=== PATIENT | female | born 1955 | race African-American/Black ===

== ENCOUNTER → 2017-02-14 | Outpatient (CLI) | payer MEDICARE, OTHER ==
[2016-03-04 12:14] VITALS: BP 110/86
[~2017-02-14] MED LIST: ALBU8.5H8 IH; CEFP200T PO; CELE100C PO; CYCL-331 PO; ESTR1PAT42 TD; ESTR1PAT51 TD; FEXO180T PO; FLUT16SP2 NS; FLUT1DIS5 IH; HYDR-971 PO; Hydrocodone/Chlorphen Polis PO; IBUP100T3 PO; IPRA4AER IH; LAMI1TAB2 PO; LEVO750T31 PO; MONT10TA6 PO; OXYC-323 PO; OXYC-327; OXYC1TAB8; POLY17PO5 PO; PRED20TA PO; PSEU120T46 PO
--- NOTE | 2017-02-14 15:21 | RAD ---
Indication shortness of air. COPD. PA and lateral views of the chest were obtained. Comparison is made to the most recent examination available 12/06/2014. Note is made of a CT examination of the chest 03/09/2016. No acute parenchymal infiltrate is seen. The heart and pulmonary vessels are within normal limits. There are chronic background changes compatible with emphysema and/or fibrosis. No acute parenchymal infiltrate is seen. There is a possible nodule in the right upper lobe overlying the anterior aspect of the second rib. The finding is not certain but follow-up imaging is advised. IMPRESSION: No acute finding. Chronic changes. Possible nodule in the right upper lobe. Follow-up imaging advised
== END | disposition home or self-care (01) ==
LOC: DXRAD 12:53
PROVIDERS: ATTEND Internal Medicine Pulmonary Disease
DX: J44.9 Chronic obstructive pulmonary disease, unspecified (principal); R06.02 Shortness of breath
CPT/HCPCS: 71020

== ENCOUNTER → 2017-02-22 | Outpatient (CLI) | payer MEDICARE, OTHER ==
[2016-03-04 12:14] VITALS: BP 110/86
--- NOTE | 2017-02-22 09:51 | RAD ---
CT of the chest without contrast, 02/22/2017: History: Possible lung nodule on chest radiograph Noncontrast scans were obtained as requested. Comparison is made to a study of 03/09/2016. Emphysematous changes are present in the lungs. There are moderate scattered linear opacities in both lungs most compatible with scars. There is mild pleural scarring over the pulmonary apices. No pulmonary mass or dense consolidation is seen. The small opacity seen in the right upper chest on the recent chest radiograph appears to have been due to a summation of shadows. No pulmonary nodule is seen in this region. There is mild calcific plaquing of the thoracic aorta without evidence of aneurysm. Minimal coronary calcifications are present. Several small mediastinal lymph nodes are seen without evidence of pathologic enlargement. The thyroid gland is enlarged with a vague area of decreased density seen in the left lobe near its junction with the isthmus. This measures approximately 2.8 cm and appears be unchanged since 12/05/2014. There is no evidence of pleural fluid. IMPRESSION: 1. Emphysema with moderate bilateral parenchymal scarring. 2. Unchanged left thyroid nodule. 3. No acute abnormality is detected. PQRS Compliance Statement: One or more of the following individualized dose reduction techniques were utilized for this examination: 1. Automated exposure control 2. Adjustment of the mA and/or kV according to patient size 3. Use of iterative reconstruction technique
== END | disposition home or self-care (01) ==
LOC: CT 08:39
PROVIDERS: ATTEND Internal Medicine Pulmonary Disease
DX: J43.9 Emphysema, unspecified (principal); J98.4 Other disorders of lung; E04.9 Nontoxic goiter, unspecified; I70.0 Atherosclerosis of aorta; I25.10 Atherosclerotic heart disease of native coronary artery without angina pectoris
CPT/HCPCS: 71250

== ENCOUNTER 2017-03-02 08:35 | Emergency (ER) | payer MEDICARE, OTHER ==
[2017-03-02 09:40] LABS: INFLUENZA A PATIENT NEGATIVE (NEGATIVE); INFLUENZA B PATIENT NEGATIVE (NEGATIVE)
[2017-03-02 09:53] VITALS: BP 138/73
[2017-03-02] MEDS ORDERED: AZIT250T PO (10:06)
[2017-03-02] MEDS ORDERED: IBUP800T19 PO (10:06)
--- NOTE | 2017-03-02 10:06 | PHYS DOC ---
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 Patient has a history of asthma, COPD, and sarcoidosis. She does not take any prednisone or immunosuppressive medications. She was feeling well until yesterday evening and began to feel feverish. She's had a scratchy throat that's a little bit sore. She has had a little bit of a cough. She doesn' t think she is any more short of air than usual. She has a mild headache. She does not have muscle aches or pains. As far as recent medical conditions, she did have 2 teeth pulled about 6 weeks ago but believe she is all healed up from that. She hasn't had any other recent new symptoms, new medications, etc. She did have a CT scan done last week to follow-up something that was seen on a chest x-ray. She doesn't yet know the results of that CT scan. Parts Room Clerk Dr. Rodriguez Review of Systems Review of Systems Constitutional: As in history of present illness HENT: Denies nasal congestion or sore throat but her throat is a bit scratchy Respiratory: As in history of present illness Cardiovascular: Denies chest pain GI: Denies abdominal pain, nausea, vomiting, bloody stools or diarrhea [] : Denies dysuria or hematuria [] Musculoskeletal: Denies back pain or joint pain [] Integument: Denies rash or skin lesions [] Neurologic: Mild headache, no other neurologic complaints Allergies Allergies Allergies Coded Allergies Type Severity Reaction Last Updated Verified Penicillins Allergy Intermediate rash (HAD A TWO YEAR) 04/14/14 Yes Sulfa (Sulfonamide Antibiotics) Allergy Intermediate HIVES 04/14/14 Yes simvastatin Allergy Intermediate 12/06/14 Yes erythromycin base Adverse Reaction Intermediate 04/14/14 Yes Physical Exam Physical Exam Constitutional: Well developed, well nourished, no acute distress, non-toxic appearance. Temp recheck by me 101.2 orally. Alert, mentating normally, joking, appears healthy. HENT: Normocephalic, atraumatic, bilateral external ears normal, oropharynx moist, no oral exudates, tonsils not enlarged or red, nose normal. [] Eyes: conjunctiva normal, no discharge. [] Neck: Normal range of motion, no stridor. [] Cardiovascular:Heart rate regular rhythm, no murmur [] Lungs & Thorax: Bilateral breath sounds clear to auscultation with no wheezes or rales Abdomen: Bowel sounds normal, soft, no tenderness, no masses, no pulsatile masses. [] Skin: Warm, dry, no erythema, no rash. [] Extremities: No tenderness, no cyanosis, no clubbing, ROM intact, no edema. [] Neurologic: Alert and oriented X 3, normal motor function, normal sensory function, no focal deficits noted. [] Current Patient Data Lab Results Laboratory Tests Test 03/02/17 09:03 03/02/17 09:12 Group A Streptococcus Rapid Negative (NEGATIVE) Influenza Type A (Rapid) Negative (NEGATIVE) Influenza Type B (Rapid) Negative (NEGATIVE) EKG EKG [] Radiology/Procedures Radiology/Procedures [] Course & Med Decision Making Course & Med Decision Making Pertinent Labs and Imaging studies reviewed. (See chart for details) Rapid strep negative Influenza swab negative 61-year-old female who does have a history of COPD/asthma and sarcoidosis but is not on any immunosuppressant therapy comes in with fever for less than 24 hours. I recommended that we check her for influenza and she stated "I don't have the flu", laughing and stating that she does not have muscle aches or bodyaches. I did convince her to be checked for influenza which was negative. Patient did have a chest CT on 02/22 to follow up a finding on a chest x-ray, that chest CT was negative for acute findings and I did print off her report for the patient. Discussed with the patient and her . She most likely has a viral syndrome with fever. No localizing signs or symptoms have been found. However, she does have a history of COPD and also a history of sarcoidosis. She appears healthy and stable for discharge. I offered her treatment with an antibiotic and she would like to have an antibiotic, I prescribed a Z-Jerry for her. Tylenol or ibuprofen for fever. See instructions for plan. [] Dragon Disclaimer Dragon Disclaimer This chart was dictated in whole or in part using Voice Recognition software in a busy, high-work load, and often noisy Emergency Department environment. It may contain unintended and wholly unrecognized errors or omissions. Departure Departure: Impression: Primary Impression: Febrile illness, acute Additional Impression: COPD (chronic obstructive pulmonary disease) Disposition: 01 HOME, SELF-CARE Condition: STABLE Referrals: PCP,UNKNOWN (PCP) Patient Instructions: Fever, Adult Additional Instructions: As we discussed, strep and influenza tests were negative. You likely have a virus, which may last a day or may last several days. There is no specific treatment, it just has to run its course. Take ibuprofen for fever and drink plenty of fluids. Stay inside and rest until better. Because you have COPD and a history of sarcoidosis, we will treat with a Z-Jerry in case there is a bacterial infection that we have not identified. Scripts Azithromycin (ZITHROMAX) 250 Mg Tablet 1 PKG PO UD, #6 TAB Prov: KIKO MOYA MD 03/02/17 Ibuprofen (IBUPROFEN) 800 Mg Tablet 1 TAB PO TID for as needed for fever, #30 TAB Prov: KIOK MOYA MD 03/02/17 Problem Qualifiers KIKO MOYA MD Mar 02, 2017 10:06
[2017-03-02] MEDS ORDERED: IBUPROFEN 800 MG TABLET. PO ONE (10:14)
[2017-03-02] MEDS ORDERED: IBUPROFEN 600 MG TABLET. PO ONE (10:15)
[2017-03-02] MEDS ORDERED: IBUPROFEN 400 MG TABLET. PO ONE (10:30)
== END 2017-03-02 10:15 | disposition home or self-care (01) ==
LOC: ER 08:35
DX: J44.9 Chronic obstructive pulmonary disease, unspecified (principal); Z88.0 Allergy status to penicillin; Z88.2 Allergy status to sulfonamides; Z88.1 Allergy status to other antibiotic agents; Z88.8 Allergy status to other drugs, medicaments and biological substances
CPT/HCPCS: 87070; 87804; 87880; 99284

== ENCOUNTER 2017-06-06 17:55 | Emergency (ER) | payer MEDICARE, OTHER ==
[~2017-06-06 17:55] MED LIST changes: +AZIT250T PO; +IBUP800T19 PO
[2017-06-07] MEDS ORDERED: HYDR-971 PO (08:03)
== END 2017-06-06 18:00 | disposition home or self-care (01) ==
LOC: ER 17:55
DX: M25.569 Pain in unspecified knee (principal); Z53.21 Procedure and treatment not carried out due to patient leaving prior to being seen by health care provider

== ENCOUNTER 2017-06-07 07:32 | Emergency (ER) | payer MEDICARE, OTHER ==
[~2017-06-07] VITALS: Ht 157.5 cm; Wt 79.4 kg
[2017-06-07 07:57] VITALS: BP 116/76
[2017-06-07] MEDS ORDERED: HYDR-971 PO (08:03)
--- NOTE | 2017-06-07 08:03 | PHYS DOC ---
Past History Past Medical History: Asthma, COPD, Other Additional Past Medical Histor: sarcoidosis of lung Past Surgical History: Cholecystectomy Smoking: Non-smoker Alcohol Use: Occasionally Drug Use: None Adult General Chief Complaint Chief Complaint: KNEE INJURY HPI HPI Patient is a very pleasant 61-year-old female presenting to the emergency department for evaluation of left knee pain that has been going on for approximately 2 months. Denies any known definitive injury and she went to go see her primary care provider and had an x-ray that was negative and then went to physical therapy. Patient says that the pain starts the top of her knee And it goes medially and can happen when moving or rest and she feels a sharp pain internally. She has no significant swelling fevers chills or other systemic symptoms. She is taking Celebrex which helped the pain somewhat but sometimes she has severe pain at night that lasted for several hours and then goes away on its own. She is currently going through physical therapy. Review of Systems Review of Systems Constitutional: Denies fever or chills [] Musculoskeletal: Denies back pain. + L knee joint pain [] Integument: Denies rash or skin lesions [] Neurologic: Denies headache, focal weakness or sensory changes [] Allergies Allergies Allergies Coded Allergies Type Severity Reaction Last Updated Verified Penicillins Allergy Intermediate rash (HAD A TWO YEAR) 04/14/14 Yes Sulfa (Sulfonamide Antibiotics) Allergy Intermediate HIVES 04/14/14 Yes simvastatin Allergy Intermediate 12/06/14 Yes erythromycin base Adverse Reaction Intermediate 04/14/14 Yes Physical Exam Physical Exam Constitutional: Well developed, well nourished, no acute distress, non-toxic appearance. [] Extremities: Left knee with no significant erythema or effusion. She had no pain with anterior-posterior drawer test but she did have pain with valgus maneuver that reproduced her sharp pain internally. Neurologic: Alert and oriented X 3, normal motor function, normal sensory function, no focal deficits noted. [] EKG EKG [] Radiology/Procedures Radiology/Procedures [] Course & Med Decision Making Course & Med Decision Making Given she has been having knee pain for several months she likely would benefit from MRI and orthopedic consult. She was thinking that a CT scan would be helpful however told her this would not be helpful in this clinical circumstance. I told her to prescribe her [place] for when she gets severe pain but otherwise would need to try and get the MRI. Her PCP and then follow with orthopedics. Patient aware and agreeable with plan and verbalized understanding of the above instructions. Dragon Disclaimer Dragon Disclaimer This electronic medical record was generated, in whole or in part, using a voice recognition dictation system. Departure Departure: Impression: Primary Impression: Left knee pain Disposition: HOME, SELF-CARE Condition: STABLE Referrals: NON,STAFF (PCP) Patient Instructions: Knee - Cartilage (Meniscus) Injury Scripts Hydrocodone Bit/Acetaminophen (NORCO 5-325 TABLET) 1 Each Tablet 1 TAB PO PRN Q6HRS Y for PAIN, #20 TAB 0 Refills Prov: YUSEF ARCOS DO 06/07/17 Problem Qualifiers Primary Impression: Left knee pain Chronicity: chronic Qualified Codes: M25.562 - Pain in left knee; G89.29 - Other chronic pain YUSEF ARCOS DO Jun 07, 2017 08:03
== END 2017-06-07 08:07 | disposition home or self-care (01) ==
LOC: ER 07:32
DX: G89.29 Other chronic pain (principal); M25.562 Pain in left knee; J44.9 Chronic obstructive pulmonary disease, unspecified; Z88.1 Allergy status to other antibiotic agents; Z88.0 Allergy status to penicillin; Z88.2 Allergy status to sulfonamides; Z88.8 Allergy status to other drugs, medicaments and biological substances
CPT/HCPCS: 99283

== ENCOUNTER 2017-06-26 20:27 | Emergency (ER) | payer MEDICARE, OTHER ==
[~2017-06-26] VITALS: Ht 157.5 cm; Wt 79.4 kg
[2017-06-26 20:27] VITALS: BP 128/73
[2017-06-26] MEDS ORDERED: AZIT250T PO (21:10)
--- NOTE | 2017-06-26 21:13 | PHYS DOC ---
General Chief Complaint: SORE THROAT Stated Complaint: SORE THROAT Time Seen by MD: 20:39 Source: patient Exam Limitations: no limitations Problems: History of Present Illness Initial Comments Patient is a 62-year-old female who comes to the ED complaining of sore throat and cough. Patient has history of asthma, COPD, and sarcoidosis and states she is very susceptible to developing pneumonia. For the past 24 hours she's had worsening sore throat and cough with chills and sweats no measured fevers no dyspnea vomiting or diarrhea. She is drinking fluids well but states is becoming increasingly more painful to take in solids. She denies headache or myalgias no neck stiffness or rash. No pre-arrival treatment the patient has not had to increase any breathing treatments at home at this time. The patient states she is able to tolerate Zithromax she is not allergic. ED vital signs are stable patient appears to be very uncomfortable. Timing/Duration: gradual, yesterday Severity: severe Location: throat Prearrival Treatment: no prearrival treatment Modifying Factors: worse with coughing, improves with other Associated Symptoms: cough, malaise, poor solids intake, sore throat Allergies: Coded Allergies: Penicillins (Verified Allergy, Intermediate, rash (HAD A TWO YEAR), 04/14/14) Sulfa (Sulfonamide Antibiotics) (Verified Allergy, Intermediate, HIVES, ) simvastatin (Verified Allergy, Intermediate, 12/06/14) erythromycin base (Verified Adverse Reaction, Intermediate, 04/14/14) n/v Past Medical History Medical History: asthma, other (COPD, sarcoidosis) Surgical History: cholecystectomy Family History Significant Family History: no pertinent family hx Social History Smoker: non-smoker Alcohol: rarely Drugs: none Constitutional: see HPI Ears: denies dizziness, denies pain, denies tinnitus Nose: denies clots, denies congestion, denies epistaxis Throat: see HPI, denies neck stiffness, denies difficulty with fluids Respiratory: cough, denies shortness of breath, denies wheezing Cardiovascular: denies chest pain, denies palpitations, denies syncope Gastrointestinal: denies abdominal pain, denies nausea, denies vomiting Physical Exam General Appearance: moderate distress, obese Eyes: bilateral eye normal inspection, bilateral eye PERRL, bilateral eye EOMI Nose: normal inspection Mouth/Throat: other (pharynx beefy red with exudate airway is widely patent) Neck: full range of motion, supple (tender reactive lymphadenopathy bilaterally no nuchal rigidity) Cardiovascular/Respiratory: normal peripheral pulses, normal breath sounds, no respiratory distress Neurologic/Psychiatric: lead data architect II-XII nml as tested, no motor/sensory deficits, alert, normal mood/affect, oriented x 3 Skin: normal color, warm/dry Orders, Labs, Meds Rapid strep negative Given the patient's extensive pulmonary history we will treat early to avoid pneumonia development. I discussed signs and symptoms to monitor as well as indications for urgent return to the department. Discussed [id number] prescription medications as well as close follow-up with PCP. Patient's questions were answered to her satisfaction and she expressed agreement and understanding of treatment plan. Patient confirmed she is able to take a Z-Jerry no allergy. Departure Time of Disposition: 21:11 Disposition: 01 HOME, SELF-CARE Diagnosis: pharyngitis Condition: GOOD Patient Instructions: Viral and Bacterial Pharyngitis, [id number] Additional Instructions: Drink plenty of fluids to avoid dehydration. [id number] Tylenol, ibuprofen, and analgesic throat sprays as needed. Prescription: Z-Jerry Follow-up with your doctor in 7-10 days for recheck. Return to ED with new or changing symptoms. CONCEPCION PAL DO Jun 26, 2017 21:13
[2017-06-26] MEDS ORDERED: AZITHROMYCIN 250 MG TABLET. PO ONE (21:15)
== END 2017-06-26 21:40 | disposition home or self-care (01) ==
LOC: ER 20:27
DX: J02.9 Acute pharyngitis, unspecified (principal); J44.9 Chronic obstructive pulmonary disease, unspecified; Z88.2 Allergy status to sulfonamides; Z88.1 Allergy status to other antibiotic agents; Z88.0 Allergy status to penicillin
CPT/HCPCS: 99283; J0456

== ENCOUNTER 2017-08-19 07:49 | Emergency (ER) | payer MEDICARE, OTHER ==
[~2017-08-19] VITALS: Ht 157.5 cm; Wt 79.4 kg
[2017-08-19 07:49] VITALS: BP 128/77
[2017-08-19 08:36] LABS: BILIRUBIN,URINE NEG (NEG); CLARITY,URINE HAZY; COLOR,URINE YELLOW; GLUCOSE,URINE NEG (NEG)
[2017-08-19 08:37] LABS: BACTERIA,URINE FEW /HPF (0-FEW); NITRITE,URINE NEG (NEG); RBC,URINE RARE /HPF (0-2); SQUAMOUS EPITHELIAL CELL,UR FEW /LPF; UROBILINOGEN,URINE 0.2 mg/dL (0.2 mg/dL); WBC,URINE OCC /HPF (0-4)
--- NOTE | 2017-08-19 08:42 | PHYS DOC ---
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 Patient states she had chronic back pain and takes pain medication and is not sure about back pain related to this problem. Patient states she wiped herself this morning she had bright red blood on the wipe. Patient states she is not sure if the blood coming from her vagina or from her urine. She denies fever and chills, nausea and vomiting, abdominal pain. Her last LMP was about 25 years ago. Review of Systems Review of Systems Constitutional: Denies fever or chills [] Eyes: Denies change in visual acuity, redness, or eye pain [] HENT: Denies nasal congestion or sore throat [] Respiratory: Denies cough or shortness of breath [] Cardiovascular: No additional information not addressed in HPI [] GI: Denies abdominal pain, nausea, vomiting, bloody stools or diarrhea [] : Denies dysuria or hematuria [] Musculoskeletal: Denies back pain or joint pain [] Integument: Denies rash or skin lesions [] Neurologic: Denies headache, focal weakness or sensory changes [] Endocrine: Denies polyuria or polydipsia [] All other systems were reviewed and found to be within normal limits, except as documented in this note. Allergies Allergies Allergies Coded Allergies Type Severity Reaction Last Updated Verified Penicillins Allergy Intermediate rash (HAD A TWO YEAR) 04/14/14 Yes Sulfa (Sulfonamide Antibiotics) Allergy Intermediate HIVES 04/14/14 Yes simvastatin Allergy Intermediate 12/06/14 Yes erythromycin base Adverse Reaction Intermediate 04/14/14 Yes Physical Exam Physical Exam Constitutional: Well developed, well nourished, no acute distress, non-toxic appearance. [] HENT: Normocephalic, atraumatic, bilateral external ears normal, oropharynx moist, no oral exudates, nose normal. [] Eyes: PERRLA, EOMI, conjunctiva normal, no discharge. [] Neck: Normal range of motion, no tenderness, supple, no stridor. [] Cardiovascular:Heart rate regular rhythm, no murmur [] Lungs & Thorax: Bilateral breath sounds clear to auscultation [] Abdomen: Bowel sounds normal, soft, no tenderness, no masses, no pulsatile masses. [] Skin: Warm, dry, no erythema, no rash. [] Back: No tenderness, no CVA tenderness. [] Extremities: No tenderness, no cyanosis, no clubbing, ROM intact, no edema. [] Neurologic: Alert and oriented X 3, normal motor function, normal sensory function, no focal deficits noted. [] Psychologic: Affect normal, judgement normal, mood normal. [] Current Patient Data Vital Signs Vital Signs Date Time Temp Pulse Resp B/P (MAP) Pulse Ox O2 Delivery O2 Flow Rate FiO2 08/19/17 07:49 97.7 108 18 99 Room Air Lab Results Laboratory Tests Test 08/19/17 08:12 Urine Collection Type Unknown Urine Color Yellow Urine Clarity Hazy Urine pH 5.5 Urine Specific Reliance 1.015 Urine Protein 30 mg/dl (NEG-TRACE) Urine Glucose (UA) Neg mg/dL (NEG) Urine Ketones (Stick) Neg mg/dL (NEG) Urine Blood Large (NEG) Urine Nitrite Neg (NEG) Urine Bilirubin Neg (NEG) Urine Urobilinogen Dipstick 0.2 mg/dL (0.2 mg/dL) Urine Leukocyte Esterase Neg (NEG) Urine RBC Rare /HPF (0-2) Urine WBC Occ /HPF (0-4) Urine Squamous Epithelial Cells Few /LPF Urine Bacteria Few /HPF (0-FEW) EKG EKG [] Radiology/Procedures Radiology/Procedures [] Course & Med Decision Making Course & Med Decision Making Pertinent Labs reviewed. (See chart for details) Evaluation of patient in ER showed 62-year-old female patient presented to ER with complaining of blood in genital area. Patient had unremarkable physical exam. UA showed moderate blood. Patient refuses vaginal exam and stated she just made an appointment with her doctor to have Pap smear and vaginal exam. [] Dragon Disclaimer Dragon Disclaimer This electronic medical record was generated, in whole or in part, using a voice recognition dictation system. Departure Departure: Impression: Primary Impression: Hematuria Disposition: HOME, SELF-CARE (At 0840) Condition: STABLE Referrals: RODRICK ALCALA DO, MPH (PCP) Patient Instructions: Hematuria, Adult Additional Instructions: Drink plenty of liquids Follow-up with your primary care physician in 3-5 days Return to ER if not getting better OPHELIA NOONAN MD Aug 19, 2017 08:41
[2017-08-20] MEDS ORDERED: ACET500T68 PO (18:26)
[2017-08-20] MEDS ORDERED: DIPH-121 PO (18:26)
== END 2017-08-19 08:44 | disposition home or self-care (01) ==
LOC: ER 07:49
DX: R31.9 Hematuria, unspecified (principal); G89.29 Other chronic pain; J44.9 Chronic obstructive pulmonary disease, unspecified; Z88.0 Allergy status to penicillin; Z88.2 Allergy status to sulfonamides; Z88.1 Allergy status to other antibiotic agents
CPT/HCPCS: 81001; 99283

== ENCOUNTER 2017-08-20 17:09 | Emergency (ER) | payer MEDICARE, OTHER ==
[~2017-08-20] VITALS: Ht 157.5 cm; Wt 80.7 kg
[2017-08-20 17:20] VITALS: BP 143/86
[2017-08-20] MEDS ORDERED: ACETAMINOPHEN 500 MG TABLET PO ONE (18:00)
--- NOTE | 2017-08-20 18:12 | ED.ADGEN ---
Past History Past Medical History: Asthma, COPD, Other Additional Past Medical Histor: sarcoidosis of lung Past Surgical History: Cholecystectomy Smoking: Non-smoker Alcohol Use: Rarely Drug Use: None Adult General Chief Complaint Chief Complaint " I got a sore throat today... yesterday... they checked my flu and it was negative...but they did check a flu..." but not a strept test...?' [facility] HPI Patient is a 62 year old female who presents with above hx and complaints of sore throat. Patient is currently on Cipro for urinary tract infection. Recent onset of pharyngitis. No recent travel. No specific ill contacts. Patient follows at [facility] for medical care and obtains prescriptions from [facility]. Patient denies any history of immunosuppression or HIV. Patient denies any contact with sick animals. Patient has been compliant for Cipro medications. Patient has 4 caplets or tablets left. .Pt. has hx of pulmonary sarcoid. Review of Systems Review of Systems Constitutional: Subjective history of fever or chills [] Eyes: Denies change in visual acuity, redness, or eye pain [] HENT: Complaints of sore throat [] Respiratory: Denies cough or shortness of breath [] Cardiovascular: No additional information not addressed in HPI [] GI: Denies abdominal pain, nausea, vomiting, bloody stools or diarrhea [] : Denies dysuria or hematuria [] Musculoskeletal: Denies back pain or joint pain [] Integument: Denies rash or skin lesions [] Neurologic: Denies headache, focal weakness or sensory changes [] Endocrine: Denies polyuria or polydipsia [] All other systems were reviewed and found to be within normal limits, except as documented in this note. Family History Family History Non-contributory Current Medications Current Medications Current Medications Medications (Trade) Dose Ordered Sig/Michael Start Time Stop Time Status Last Admin Dose Admin Acetaminophen (Tylenol) 1,000 mg 1X ONCE 08/20/17 18:00 08/20/17 18:01 DC 08/20/17 17:45 1,000 MG Allergies Allergies Allergies Coded Allergies Type Severity Reaction Last Updated Verified Penicillins Allergy Intermediate rash (HAD A TWO YEAR) 04/14/14 Yes Sulfa (Sulfonamide Antibiotics) Allergy Intermediate HIVES 04/14/14 Yes simvastatin Allergy Intermediate 12/06/14 Yes erythromycin base Adverse Reaction Intermediate 04/14/14 Yes Physical Exam Physical Exam Constitutional: Well developed, well nourished, no acute distress, non-toxic appearance. [] HENT: Normocephalic, atraumatic, bilateral external ears normal, oropharynx moist, no oral exudates, nose normal. [Mild injection pharynx Eyes: PERRLA, EOMI, conjunctiva normal, no discharge. [] Neck: Normal range of motion, no tenderness, supple, no stridor. [] Cardiovascular:Heart rate regular rhythm, no murmur [] Lungs & Thorax: Bilateral breath sounds clear to auscultation [] Abdomen: Bowel sounds normal, soft, no tenderness, no masses, no pulsatile masses. [] Obese Skin: Warm, dry, no erythema, no rash. [] Back: No tenderness, no CVA tenderness. [] Extremities: No tenderness, no cyanosis, no clubbing, ROM intact, no edema. [] Neurologic: Alert and oriented X 3, normal motor function, normal sensory function, no focal deficits noted. [] Psychologic: Affect normal, judgement normal, mood normal. [] Current Patient Data Vital Signs Vital Signs Date Time Temp Pulse Resp B/P (MAP) Pulse Ox O2 Delivery O2 Flow Rate FiO2 08/20/17 17:20 101.7 125 16 97 Room Air Lab Results Laboratory Tests Test 08/20/17 17:28 Group A Streptococcus Rapid Negative (NEGATIVE) EKG EKG [] Radiology/Procedures Radiology/Procedures [] Course & Med Decision Making Course & Med Decision Making Pertinent Labs and Imaging studies reviewed. (See chart for details). Gargle with Listerine R warm salt water 4 times a day. Take Tylenol as needed for discomfort. Follow-up primary care. Follow-up if no improvement. Benadryl 25 -50 mg up 4 times a day liquid may be helpful for some of her symptoms. Suspect her upper respiratory infection is viral .. Patient to complete her course of Cipro . [] Final Impression Final Impression 1. Viral Syndrome 2. Hx. UTI[] Problems: Dragon Disclaimer Dragon Disclaimer This electronic medical record was generated, in whole or in part, using a voice recognition dictation system. OLGA MCGRATH MD Aug 20, 2017 18:12
[2017-08-20] MEDS ORDERED: ACET500T68 PO (18:26)
[2017-08-20] MEDS ORDERED: DIPH-121 PO (18:26)
== END 2017-08-20 18:34 | disposition home or self-care (01) ==
LOC: ER 17:09
DX: B34.9 Viral infection, unspecified (principal); J44.9 Chronic obstructive pulmonary disease, unspecified; Z87.440 Personal history of urinary (tract) infections; Z88.0 Allergy status to penicillin; Z88.2 Allergy status to sulfonamides; Z88.1 Allergy status to other antibiotic agents
CPT/HCPCS: 87070; 87880; 99284

== ENCOUNTER 2017-08-25 14:32 | Emergency (ER) | payer MEDICARE, OTHER ==
[~2017-08-25] VITALS: Ht 157.5 cm; Wt 80.7 kg
[~2017-08-25 14:32] MED LIST changes: +ACET500T68 PO; +DIPH-121 PO
[2017-08-25 14:50] VITALS: BP 130/84
[2017-08-25] MEDS ORDERED: DICL100G18 TP (15:19)
[2017-08-25] MEDS ORDERED: PRED-220 PO (15:19)
--- NOTE | 2017-08-25 15:20 | PHYS DOC ---
Past History Past Medical History: Asthma, COPD, Other Additional Past Medical Histor: sarcoidosis of lung Past Surgical History: No Surgical History Smoking: Non-smoker Alcohol Use: None Drug Use: None Adult General Chief Complaint Chief Complaint: COUGH HPI HPI Patient is a 62 year old F who presents with cough and mild shortness of breath over the past 5-6 days. Arabella states that she feels that she has some the cough but nothing comes up. She also describes pain in her chest with coughing only. She has no other associated symptoms. She has no other exacerbating or alleviating factors. Review of Systems Review of Systems Constitutional: Denies fever or chills [] Eyes: Denies change in visual acuity, redness, or eye pain [] HENT: Denies nasal congestion or sore throat [] Respiratory: Negative except history of present illness Cardiovascular: No additional information not addressed in HPI [] GI: Denies abdominal pain, nausea, vomiting, bloody stools or diarrhea [] : Denies dysuria or hematuria [] Musculoskeletal: Denies back pain or joint pain [] Integument: Denies rash or skin lesions [] Neurologic: Denies headache, focal weakness or sensory changes [] Endocrine: Denies polyuria or polydipsia [] All other systems were reviewed and found to be within normal limits, except as documented in this note. Family History Family History No pertinent family medical history was reported Current Medications Current Medications Current medications reviewed Allergies Allergies Allergies Coded Allergies Type Severity Reaction Last Updated Verified Penicillins Allergy Intermediate rash (HAD A TWO YEAR) 04/14/14 Yes Sulfa (Sulfonamide Antibiotics) Allergy Intermediate HIVES 04/14/14 Yes simvastatin Allergy Intermediate 12/06/14 Yes erythromycin base Adverse Reaction Intermediate 04/14/14 Yes Physical Exam Physical Exam Constitutional: Well developed, well nourished, no acute distress, non-toxic appearance. [] HENT: Normocephalic, atraumatic, mild nasal congestion bilaterally Eyes: EOMI, conjunctiva normal, no discharge. [] Neck: Normal range of motion, no tenderness, supple, no stridor. [] Cardiovascular:Heart rate regular rhythm, Lungs & Thorax: Clear breath sounds bilaterally with nonproductive cough noted Abdomen: Bowel sounds normal, soft, no tenderness, no masses, no pulsatile masses. [] Skin: Warm, dry, no erythema, no rash. [] Extremities: No tenderness, no cyanosis, no clubbing, ROM intact, no edema. [] Neurologic: Alert and oriented X 3, normal motor function, normal sensory function, no focal deficits noted. [] Psychologic: Affect normal, judgement normal, mood normal. [] Current Patient Data Vital Signs Vital Signs Date Time Temp Pulse Resp B/P (MAP) Pulse Ox O2 Delivery O2 Flow Rate FiO2 08/25/17 14:50 98.1 102 18 94 Room Air EKG EKG [] Radiology/Procedures Radiology/Procedures [] Course & Med Decision Making Course & Med Decision Making Pertinent Labs and Imaging studies reviewed. (See chart for details) Labs and imaging were declined Dragon Disclaimer [employer] Disclaimer This electronic medical record was generated, in whole or in part, using a voice recognition dictation system. Departure Departure: Impression: Primary Impression: Viral bronchitis Disposition: HOME, SELF-CARE Condition: STABLE Referrals: MATTHEW DUBOIS MD (PCP) Patient Instructions: Acute Bronchitis Additional Instructions: Arabella was seen in the emergency department for cough. No emergency medical condition was found on history or physical exam. She was advised to use her Combivent more regularly at home. She was also given a prescription for oral steroids to start if her Combivent does not improve her symptoms. She was given a prescription for Voltaren gel for her rib pain and advised follow-up with her primary care doctor as needed for further management. Scripts Diclofenac Sodium (VOLTAREN) 100 Gm Gel..gram. 1 GM TP QID, #100 GM 2 Refills Prov: MADDY BASS MD 08/25/17 Prednisone (PREDNISONE) 10 Mg Tablet 10 MG PO DAILY for 5 Days, #5 TAB Prov: MADDY BASS MD 08/25/17 MADDY BASS MD Aug 25, 2017 15:20
== END 2017-08-25 15:28 | disposition home or self-care (01) ==
LOC: ER 14:32
DX: J20.8 Acute bronchitis due to other specified organisms (principal); J44.0 Chronic obstructive pulmonary disease with (acute) lower respiratory infection; Z88.0 Allergy status to penicillin; Z88.1 Allergy status to other antibiotic agents; Z88.2 Allergy status to sulfonamides
CPT/HCPCS: 99283

== ENCOUNTER 2017-11-04 09:14 | Emergency (ER) | payer MEDICARE, OTHER ==
[~2017-11-04] VITALS: Ht 157.5 cm; Wt 77.1 kg
[~2017-11-04 09:14] MED LIST changes: +DICL100G18 TP; +PRED-220 PO; +PSEU120T10 PO; -PSEU120T46 PO
[2017-11-04] MEDS ORDERED: LIDO15SO2 MM (09:44)
--- NOTE | 2017-11-04 09:49 | PHYS DOC ---
Past History Past Medical History: Asthma, COPD, Other Additional Past Medical Histor: sarcoidosis of lung Past Surgical History: No Surgical History Smoking: Non-smoker Alcohol Use: None Drug Use: None Adult General Chief Complaint Chief Complaint: DENTAL PROBLEM HPI HPI Patient is a 62 year old F who presents with a sore on the roof her mouth over the past 2-3 days. She is currently using nystatin swish and swallow. She feels that her pain is not worse but is persistent. She has mild tenderness in the right side of her neck and face. She has no other associated symptoms. She has no exacerbating or relieving factors. She is on Advair for pulmonary disease. Review of Systems Review of Systems Constitutional: Denies fever or chills [] Eyes: Denies change in visual acuity, redness, or eye pain [] HENT: Denies nasal congestion or sore throat [] Respiratory: Denies cough or shortness of breath [] Cardiovascular: No additional information not addressed in HPI [] GI: Denies abdominal pain, nausea, vomiting, bloody stools or diarrhea [] : Denies dysuria or hematuria [] Musculoskeletal: Denies back pain or joint pain [] Integument: Denies rash or skin lesions [] Neurologic: Denies headache, focal weakness or sensory changes [] Endocrine: Denies polyuria or polydipsia [] All other systems were reviewed and found to be within normal limits, except as documented in this note. Current Medications Current Medications Current Medications Medications (Trade) Dose Ordered Sig/Michael Start Time Stop Time Status Last Admin Dose Admin Lidocaine HCl 15 ml 1X ONCE 11/04/17 09:45 11/04/17 09:46 UNV Allergies Allergies Allergies Coded Allergies Type Severity Reaction Last Updated Verified Penicillins Allergy Intermediate rash (HAD A TWO YEAR) 04/14/14 Yes Sulfa (Sulfonamide Antibiotics) Allergy Intermediate HIVES 04/14/14 Yes simvastatin Allergy Intermediate 12/06/14 Yes erythromycin base Adverse Reaction Intermediate 04/14/14 Yes Physical Exam Physical Exam Constitutional: Well developed, well nourished, no acute distress, non-toxic appearance. [] HENT: Normocephalic, atraumatic, bilateral external ears normal, oropharynx moist, no oral exudates, nose normal. [] Ulceration on the hard palate Eyes: EOMI, conjunctiva normal, no discharge. [] Neck: Normal range of motion, no tenderness, supple, no stridor. [] Cardiovascular:Heart rate regular rhythm, Lungs & Thorax: Bilateral breath sounds clear to auscultation [] Abdomen: Bowel sounds normal, soft, no tenderness, no masses, no pulsatile masses. [] Extremities: No tenderness, no cyanosis, no clubbing, ROM intact, no edema. [] Neurologic: Alert and oriented X 3, normal motor function, normal sensory function, no focal deficits noted. [] Psychologic: Affect normal, judgement normal, mood normal. [] Current Patient Data Vital Signs Normal vital signs. Please review nursing recommendation for specifics EKG EKG [] Radiology/Procedures Radiology/Procedures [] Course & Med Decision Making Course & Med Decision Making Pertinent Labs and Imaging studies reviewed. (See chart for details) [] Dragon Disclaimer Dragon Disclaimer This electronic medical record was generated, in whole or in part, using a voice recognition dictation system. Departure Departure: Impression: Primary Impression: Oral thrush Disposition: HOME, SELF-CARE Condition: STABLE Referrals: MATTHEW DUBOIS MD (PCP) Patient Instructions: Thrush, Adult Additional Instructions: Arabella was seen in the emergency department for a sore in her mouth. No emergency medical condition was found on history or physical exam. Her symptoms are most consistent with oral thrush. She is advised continue her nystatin swish and swallow. She was also given a prescription for lidocaine to swish and spit. She was encouraged follow-up with her primary care doctor in the next 5-7 days for further management. Scripts Lidocaine HCl (Lidocaine HCl Viscous) 15 Ml Solution 5 ML MM TID Y for MOUTH PAIN for 7 Days, #120 [facility] Prov: MADDY BASS MD 11/04/17 MADDY BASS MD Nov 04, 2017 09:49
[2017-11-04] MEDS ORDERED: LIDOCAINE 2% VISCOUS 15 ML SOLUTION. SWSW ONE (10:00)
[2017-11-04 12:19] VITALS: BP 131/84
== END 2017-11-04 10:15 | disposition home or self-care (01) ==
LOC: ER 09:14
DX: B37.0 Candidal stomatitis (principal); M54.2 Cervicalgia; J44.9 Chronic obstructive pulmonary disease, unspecified; Z88.0 Allergy status to penicillin; Z88.1 Allergy status to other antibiotic agents; Z88.2 Allergy status to sulfonamides; Z88.8 Allergy status to other drugs, medicaments and biological substances
CPT/HCPCS: 99283

== ENCOUNTER → 2018-02-14 | Outpatient (CLI) | payer MEDICARE, OTHER ==
[~2018-02-14] MED LIST changes: +LIDO15SO2 MM
--- NOTE | 2018-02-14 12:17 | RAD ---
Examination: CT chest without contrast HISTORY: History of COPD, sarcoidosis, 40+ years of smoking COMPARISON: 02/22/2017 TECHNIQUE: Axial CT images of the chest were performed without contrast. Coronal and sagittal reformats are performed Exposure: One or more of the following individualized dose reduction techniques were utilized for this examination: 1. Automated exposure control 2. Adjustment of the mA and/or kV according to patient size 3. Use of iterative reconstruction technique FINDINGS: There is a 2.8 cm hypodense nodule identified in the left lobe of the thyroid gland similar to prior exam. The heart size grossly appears unremarkable Mild coronary artery calcifications. Noted likely significant mediastinal lymphadenopathy is identified Mild prominent appearing bilateral interstitial lung markings grossly similar to prior exam. There is a small nodule identified in the right middle lobe of the lung measuring 5 mm. There is vague ill-defined density measuring 1.4 cm identified in the right lower lobe of the lung is similar to prior exam No evidence of pleural effusion or pneumothorax identified. The visualized noncontrasted liver, spleen, adrenals grossly appears unremarkable. Cholecystectomy clips identified IMPRESSION: 1. 5 mm nodule identified in the right middle lobe of the lung. Follow-up per Fleischner Society guidelines with a follow-up CT in 3-6 months. 2. The 1.4 cm vague ill-defined density identified in the right lower lobe of the lung, best visualized on series 3 image #44 is similar to prior exam and is stable since 03/09/2016. 3. Mild prominent appearing bilateral interstitial lung markings grossly similar to prior exam. 4. 2.8 cm hypodensity identified in the left lobe of the thyroid gland. Recommend follow-up ultrasound thyroid for further evaluation. Electronically signed by: Arvin Kaba MD (02/14/2018 12:13 PM) [facility]
== END | disposition home or self-care (01) ==
LOC: CT 09:36
PROVIDERS: ATTEND Internal Medicine Pulmonary Disease
DX: R91.1 Solitary pulmonary nodule (principal); I25.10 Atherosclerotic heart disease of native coronary artery without angina pectoris; J43.9 Emphysema, unspecified; E78.00 Pure hypercholesterolemia, unspecified; Z90.49 Acquired absence of other specified parts of digestive tract; Z87.440 Personal history of urinary (tract) infections; Z87.891 Personal history of nicotine dependence; Z88.2 Allergy status to sulfonamides; Z88.0 Allergy status to penicillin; Z88.1 Allergy status to other antibiotic agents; Z88.8 Allergy status to other drugs, medicaments and biological substances
CPT/HCPCS: 71250

== ENCOUNTER 2018-03-03 12:45 | Inpatient (IN) | payer MEDICARE, OTHER ==
[~2018-03-03] VITALS: Ht 157.5 cm; Wt 76.7 kg
--- NOTE | 2018-03-03 13:40 | RAD ---
CT HEAD WO CONTRAST dated 03/03/2018 1:15 PM Indication: Headache.FEVER TODAY AND TWO WEEKS AGO. Comparison: No comparison is available. Technique: Contiguous axial imaging the head was performed from skull base to vertex. One or more of the following individualized dose reduction techniques were utilized for this examination: 1. Automated exposure control 2. Adjustment of the mA and/or kV according to patient size 3. Use of iterative reconstruction technique Findings: Ventricles and sulci are within normal limits for age. No midline shift or mass effect. Brain parenchyma is of normal attenuation. No hemorrhage or extra axial collection. Posterior fossa and brainstem unremarkable. Visualized paranasal sinuses and mastoid air cells are clear. No apparent calvarial abnormality. IMPRESSION: No evidence of acute intracranial abnormality. Electronically signed by: Harvinder Goode MD (03/03/2018 1:37 PM) [id number]
[2018-03-03] MEDS ORDERED: IV NORMAL SALINE 1,000ML 1,000 ML IV SCH (13:45)
--- NOTE | 2018-03-03 13:46 | RAD ---
Chest, PA and Lateral: Technique: PA and lateral views of the chest were obtained. History: Fever. Comparison: 02/14/2017.. Findings: The heart and pulmonary vasculature appear within normal limits. Faint airspace opacities identified in the bibasilar lungs could be minimal atelectasis or infiltrates. Faint infiltrates in the right upper lobe of the lungs similar to prior exam. IMPRESSION: 1. Faint bibasilar lung airspace opacities likely atelectasis or minimal infiltrates.. Electronically signed by: Arvin Kaba MD (03/03/2018 1:43 PM) [id number]
[2018-03-03] MEDS ORDERED: cefTRIAXone SODIUM 1 GM VIAL IV ONE (14:06)
[2018-03-03] MEDS ORDERED: IV NORMAL SALINE 50ML 50 ML ONE (14:06)
[2018-03-03 14:13] LABS: BASO # 0.1 x10^3/uL (0.0-0.2); BASO % 1 % (0-3); EOS % 0 % (0-3); HEMATOCRIT 41.8 % (36.0-47.0); LYMPH % 10 % (24-48); MEAN CORPUSCULAR HEMOGLOBIN 27 pg (25-35); MEAN CORPUSCULAR HGB CONC 34 g/dL (31-37); MEAN CORPUSCULAR VOLUME 81 fL (79-100); MONO # 0.5 x10^3/uL (0.0-1.1); MONO % 5 % (0-9); NEUT # 9.2 x10^3uL (1.8-7.7); NEUT % 85 % (31-73); PLATELET COUNT 231 x10^3/uL (140-400); RED BLOOD COUNT 5.19 x10^6/uL (3.50-5.40); RED CELL DISTRIBUTION WIDTH 14.6 % (11.5-14.5); WHITE BLOOD COUNT 10.9 x10^3/uL (4.0-11.0)
[2018-03-03] MEDS ORDERED: ACETAMINOPHEN 500 MG TABLET PO ONE (14:15)
[2018-03-03 14:25] LABS: MONONUCLEOSIS PATIENT NEGATIVE (NEGATIVE)
[2018-03-03 14:28] LABS: ALBUMIN 3.7 g/dL (3.4-5.0); ALBUMIN/GLOBULIN RATIO 0.8 (1.0-1.7); CALCIUM 8.9 mg/dL (8.5-10.1); CREATININE 0.9 mg/dL (0.6-1.0); GFR 77.3; POTASSIUM 3.8 mmol/L (3.5-5.1); TOTAL BILIRUBIN 0.9 mg/dL (0.2-1.0); TOTAL PROTEIN 8.4 g/dL (6.4-8.2)
--- NOTE | 2018-03-03 14:43 | PHYS DOC ---
Past History Past Medical History: Asthma, COPD, Other Additional Past Medical Histor: sarcoidosis of lung Past Surgical History: Cholecystectomy Smoking: Non-smoker Alcohol Use: Occasionally Drug Use: None Adult General Chief Complaint Chief Complaint: FEVER HPI HPI Patient is a 62 year old female who presented with complaining of fever. Patient states she had fever up to 102 and chills for the last 2 days with generalized weakness. Patient complaining of mild nonproductive cough and pain behind of her eyes. Patient denies shortness of breath, URI symptoms, nausea and vomiting, urinary symptoms, neck pain, headache, sick contacts, history of the same problem. Patient states she has history of sarcoidosis but did not have any episodes of acute sarcoidosis for the last 10 years. Review of Systems Review of Systems Constitutional: Reports fever and chills [] Eyes: Denies change in visual acuity, redness, or eye pain [] HENT: Denies nasal congestion or sore throat [] Respiratory: Reports cough, denies shortness of breath [] Cardiovascular: No additional information not addressed in HPI [] GI: Denies abdominal pain, nausea, vomiting, bloody stools or diarrhea [] : Denies dysuria or hematuria [] Musculoskeletal: Denies back pain or joint pain [] Integument: Denies rash or skin lesions [] Neurologic: Denies headache, focal weakness or sensory changes [] Endocrine: Denies polyuria or polydipsia [] All other systems were reviewed and found to be within normal limits, except as documented in this note. Current Medications Current Medications Current Medications Medications (Trade) Dose Ordered Sig/Michael Start Time Stop Time Status Last Admin Dose Admin Acetaminophen (Tylenol) 1,000 mg 1X ONCE 03/03/18 14:15 03/03/18 14:16 DC 03/03/18 14:17 1,000 MG Ceftriaxone Sodium 1 gm/ Sodium Chloride 50 ml @ 100 mls/hr 1X ONCE 03/03/18 14:15 03/03/18 14:44 03/03/18 14:22 100 MLS/HR Ceftriaxone Sodium (Rocephin) 1 gm STK-MED ONCE 03/03/18 14:06 03/03/18 14:07 DC Sodium Chloride 50 ml @ As Directed STK-MED ONCE 03/03/18 14:06 03/03/18 14:07 DC Allergies Allergies Allergies Coded Allergies Type Severity Reaction Last Updated Verified Penicillins Allergy Intermediate rash (HAD A TWO YEAR) 03/03/18 Yes Sulfa (Sulfonamide Antibiotics) Allergy Intermediate HIVES 03/03/18 Yes simvastatin Allergy Intermediate 03/03/18 Yes erythromycin base Adverse Reaction Intermediate 03/03/18 Yes Physical Exam Physical Exam Constitutional: Well developed, well nourished, mild distress, non-toxic appearance, febrile, temperature of 101. [] HENT: Normocephalic, atraumatic, bilateral external ears normal, oropharynx moist, no oral exudates, nose normal. [] Eyes: PERRLA, EOMI, conjunctiva normal, no discharge. [] Neck: Normal range of motion, no tenderness, supple, no stridor. [] Cardiovascular: Tachycardia, no murmur [] Lungs & Thorax: Bilateral breath sounds clear to auscultation [] Abdomen: Bowel sounds normal, soft, no tenderness, no masses, no pulsatile masses. [] Skin: Warm, dry, no erythema, no rash. [] Back: No tenderness, no CVA tenderness. [] Extremities: No tenderness, no cyanosis, no clubbing, ROM intact, no edema. [] Neurologic: Alert and oriented X 3, normal motor function, normal sensory function, no focal deficits noted. [] Psychologic: Affect normal, judgement normal, mood normal. [] Current Patient Data Vital Signs Vital Signs Date Time Temp Pulse Resp B/P (MAP) Pulse Ox O2 Delivery O2 Flow Rate FiO2 03/03/18 13:01 101.0 142 20 93 Room Air Lab Results Laboratory Tests Test 03/03/18 13:57 White Blood Count 10.9 x10^3/uL (4.0-11.0) Red Blood Count 5.19 x10^6/uL (3.50-5.40) Hemoglobin 14.0 g/dL (12.0-15.5) Hematocrit 41.8 % (36.0-47.0) Mean Corpuscular Volume 81 fL (79-100) Mean Corpuscular Hemoglobin 27 pg (25-35) Mean Corpuscular Hemoglobin Concent 34 g/dL (31-37) Red Cell Distribution Width 14.6 % (11.5-14.5) H Platelet Count 231 x10^3/uL (140-400) Neutrophils (%) (Auto) 85 % (31-73) H Lymphocytes (%) (Auto) 10 % (24-48) L Monocytes (%) (Auto) 5 % (0-9) Eosinophils (%) (Auto) 0 % (0-3) Basophils (%) (Auto) 1 % (0-3) Neutrophils # (Auto) 9.2 x10^3uL (1.8-7.7) H Lymphocytes # (Auto) 1.0 x10^3/uL (1.0-4.8) Monocytes # (Auto) 0.5 x10^3/uL (0.0-1.1) Eosinophils # (Auto) 0.0 x10^3/uL (0.0-0.7) Basophils # (Auto) 0.1 x10^3/uL (0.0-0.2) Sodium Level 142 mmol/L (136-145) Potassium Level 3.8 mmol/L (3.5-5.1) Chloride Level 105 mmol/L (98-107) Carbon Dioxide Level 29 mmol/L (21-32) Anion Gap 8 (6-14) Blood Urea Nitrogen 10 mg/dL (7-20) Creatinine 0.9 mg/dL (0.6-1.0) Estimated GFR (Cockcroft-Gault) 77.3 BUN/Creatinine Ratio 11 (6-20) Glucose Level 95 mg/dL (70-99) Lactic Acid Level 1.1 mmol/L (0.4-2.0) Calcium Level 8.9 mg/dL (8.5-10.1) Total Bilirubin 0.9 mg/dL (0.2-1.0) Aspartate Amino Transferase (AST) 16 U/L (15-37) Alanine Aminotransferase (ALT) 26 U/L (14-59) Alkaline Phosphatase 184 U/L (46-116) H Troponin I Quantitative < 0.017 ng/mL (0-0.055) Total Protein 8.4 g/dL (6.4-8.2) H Albumin 3.7 g/dL (3.4-5.0) Albumin/Globulin Ratio 0.8 (1.0-1.7) L Lipase 137 U/L (73-393) Heterophil Agglutinins Negative (NEGATIVE) EKG EKG EKG interpreted by me. EKG at 1351 showed sinus tachycardia at rate of 138, poor R-wave progress and anterior leads, no acute distress and T-wave abnormalities[] Radiology/Procedures Radiology/Procedures [address] [address] IMAGING REPORT Signed PATIENT: JOCELYNN MILLER ACCOUNT: [id number] : 1955 LOCATION: ER AGE: 62 SEX: F EXAM STATUS: REG ER ORD. PHYSICIAN: OPHELIA NOONAN MD REASON: fever PROCEDURE: CHEST PA & LATERAL Chest, PA and Lateral: Technique: PA and lateral views of the chest were obtained. History: Fever. Comparison: 02/14/2017.. Findings: The heart and pulmonary vasculature appear within normal limits. Faint airspace opacities identified in the bibasilar lungs could be minimal atelectasis or infiltrates. Faint infiltrates in the right upper lobe of the lungs similar to prior exam. IMPRESSION: 1. Faint bibasilar lung airspace opacities likely atelectasis or minimal infiltrates.. Electronically signed by: Arvin Kaba MD (03/03/2018 1:43 PM) [id number] DICTATED AND SIGNED BY: ARVIN KABA MD DATE: 03/03/18 1339 CC: OPHELIA NOONAN MD; MATTHEW DUBOIS MD ~ [][address] [address] IMAGING REPORT Signed PATIENT: JOCELYNN MILLER ACCOUNT: [id number] : 1955 LOCATION: ER AGE: 62 SEX: F EXAM STATUS: REG ER ORD. PHYSICIAN: OPHELIA NOONAN MD REASON: fever PROCEDURE: CT HEAD WO CONTRAST CT HEAD WO CONTRAST dated 03/03/2018 1:15 PM Indication: Headache.FEVER TODAY AND TWO WEEKS AGO. Comparison: No comparison is available. Technique: Contiguous axial imaging the head was performed from skull base to vertex. One or more of the following individualized dose reduction techniques were utilized for this examination: 1. Automated exposure control 2. Adjustment of the mA and/or kV according to patient size 3. Use of iterative reconstruction technique Findings: Ventricles and sulci are within normal limits for age. No midline shift or mass effect. Brain parenchyma is of normal attenuation. No hemorrhage or extra axial collection. Posterior fossa and brainstem unremarkable. Visualized paranasal sinuses and mastoid air cells are clear. No apparent calvarial abnormality. IMPRESSION: No evidence of acute intracranial abnormality. Electronically signed by: Harvinder Goode MD (03/03/2018 1:37 PM) [id number] DICTATED AND SIGNED BY: HARVINDER GOODE MD DATE: 03/03/18 [id number] CC: OPHELIA NOONAN MD; MATTHEW DUBOIS MD ~ Course & Med Decision Making Course & Med Decision Making Pertinent Labs and Imaging studies reviewed. (See chart for details) Evaluation of patient in ER showed 62-year-old female patient with history of sarcoidosis and complaining of fever for 2 days. Patient had temperature of 101 and tachycardia at rate of 140s at arrival to ER. Patient had normal white count and lactic acid and cardiac enzyme. Chest x-ray showed questionable bilateral pneumonia. Patient treated with IV fluid and Rocephin in ER and plan to admit with diagnosis of pneumonia. [] Dragon Disclaimer Dragon Disclaimer This electronic medical record was generated, in whole or in part, using a voice recognition dictation system. Departure Departure: Impression: Primary Impression: Pneumonia Additional Impressions: Fever Sinus tachycardia History of sarcoidosis Disposition: ADMITTED INPATIENT (at) Admitting Physician: Kamron Dewey (at 1439) Condition: IMPROVED Referrals: MATTHEW DUBOIS MD (PCP) Scripts Azithromycin (ZITHROMAX) 500 Mg Tablet 1 TAB PO DAILY, #5 TAB Prov: KAMRON DEWEY MD 03/04/18 Cefpodoxime Proxetil (CEFPODOXIME PROXETIL) 200 Mg Tablet 1 TAB PO BID for 7 Days, #14 TAB Prov: KAMRON DEWEY MD 03/04/18 Problem Qualifiers OPHELIA NOONAN MD Mar 03, 2018 14:43
--- NOTE | 2018-03-03 16:06 | EKG ---
[address] [address] Test Date: 2018-03-03 Test Time: 13:51:02 Pat Name: JOCELYNN MILLER Department: Room: Gender: F Basin Operator: : 1955 Requested By: OPHELIA NOONAN Order Number: [id number] Reading MD: Scooter Swift MD Measurements Intervals [place] Rate: 138 P: ID: QRS: 74 QRSD: 84 T: 48 QT: 288 QTc: 436 Interpretive Statements SINUS TACHYCARDIA Electronically Signed On 03-04-2018 11:25:58 CDT by Scooter Swift MD
[2018-03-03 16:44] LABS: BACTERIA,URINE 0 /HPF (0-FEW); BILIRUBIN,URINE NEG (NEG); CLARITY,URINE CLEAR; COLOR,URINE YELLOW; GLUCOSE,URINE NEG (NEG); NITRITE,URINE NEG (NEG); RBC,URINE OCC /HPF (0-2); SQUAMOUS EPITHELIAL CELL,UR OCC /LPF; UROBILINOGEN,URINE 0.2 mg/dL (0.2 mg/dL); WBC,URINE 0 /HPF (0-4)
[2018-03-03 16:45] VITALS: BP 113/68
[2018-03-03] MEDS ORDERED: PROG100C2 PO (17:25)
[2018-03-03] MEDS ORDERED: ESTR1PAT10 TP (17:25)
[2018-03-03] MEDS ORDERED: ATOR40TA PO (17:25)
[2018-03-03] MEDS ORDERED: FEXO180T81 PO (17:25)
[2018-03-03] MEDS ORDERED: FLUT1DIS3 IH (17:25)
[2018-03-03] MEDS ORDERED: LIDODERM PATCH TOP (17:25)
[2018-03-03] MEDS ORDERED: ACETAMINOPHEN 325 MG TABLET PO PRN (17:30)
[2018-03-03] MEDS ORDERED: NON FORMULARY ITEM (Ipratropium/Albuterol Sulfate (Combivent Respimat Inhal) 4 GM) IH PRN (17:45)
[2018-03-03] MEDS ORDERED: IPRATRPIUM/ALBUTEROL 0.5/2.5MG 3 ML NEBU. NEB PRN (18:00)
--- NOTE | 2018-03-03 18:45 | HP ---
ADMIT DATE: 03/03/2018 HISTORY OF PRESENT ILLNESS: The patient is a 62-year-old -[place] female patient, who presented to the Emergency Room with a complaint of fever. Apparently, her temperature was 102 at home. By the time she arrived to the Emergency Room it was 101. She has chills for the last 2 days and generalized weakness. She also complained of mild nonproductive cough, some pain behind her eyes. She denied any shortness of breath. Denied any nausea or vomiting. Denied any dysuria, frequency, hematuria. Denied any neck pain, headache, sick contacts or history of similar problem. She has a history of sarcoidosis, but do not have flares up of her sarcoidosis almost 10 years now. She was evaluated in the Emergency Room. Her white cell count was 10.9 and her chest x-ray showed that she has faint bibasilar lung airspace opacities, likely atelectasis or minimal infiltrate. CT scan of the head was read as no evidence of acute intracranial abnormality. The patient was admitted with diagnosis of community-acquired pneumonia. She was given a dose of ceftriaxone. I will add Zithromax. We will follow her closely. PAST MEDICAL HISTORY: Significant for sarcoidosis diagnosed about 30 years ago. At that time, she has biopsy of her skin from the right leg. She is known to have COPD and goiter. PAST SURGICAL HISTORY: Significant for cholecystectomy, skin biopsy and colonoscopy x 2. FAMILY HISTORY: She has one sister and five brothers, all . Her father at the age of 91 and mother is also , but she does not know the cause of . SOCIAL HISTORY: She is , has one daughter and one son. She does not smoke or drink alcohol. 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 REVIEW OF SYSTEMS: The patient denied any blurring of vision, cataract, glaucoma or macular degeneration. Denied any earache, tinnitus or sensorineural deafness. Denied any nosebleeds, stuffy nose or postnasal drip. Denied any sore throat, sore tongue, toothache, hoarseness of voice or difficulty swallowing. Denied any nausea, vomiting, diarrhea or constipation. Denied any hematemesis, melena or hematochezia. Denied any dysuria, frequency or hematuria. Denied any chest pain. Did complain of shortness of breath occasionally on exertion. Denied any orthopnea or paroxysmal nocturnal dyspnea. She did have cough, which is mostly nonproductive. PHYSICAL EXAMINATION Nonproductive: GENERAL: On examining her, she looked well and was clearly in no apparent respiratory distress. There was no pallor, jaundice, cyanosis, or thyromegaly. No jugular venous distension. No limb edema. VITAL SIGNS: Her heart rate was 126, blood pressure was 128/67, temperature was 101, respiratory rate was 18 and oxygen saturation was 98%. HEAD, EYES, EARS, NOSE AND THROAT: Showed normocephalic, atraumatic. NECK: Supple. HEART: Showed normal first and second heart sounds. No gallop, rub or murmur. CHEST: Clear to auscultation. No crepitation or rhonchi. ABDOMEN: Distended, soft, nontender. No guarding or rigidity. No organomegaly. All hernial orifice intact. Bowel sounds normal. NEUROLOGIC: She was awake, alert, responding appropriately. All cranial nerves intact. EXTREMITIES: She moves her extremities without difficulty. She ambulates without assistance or assistive devices. LABORATORY DATA: Showed a white cell count 10,900, hemoglobin 14, hematocrit 41, MCV 81 and platelet count of 231,000. Her serum sodium was 142, potassium 3.8, chloride 105, bicarbonate 29, anion gap of 8, BUN 10, creatinine 0.9, estimated GFR was 77 mL per minute. Her glucose was 95, lactic acid was 1.1, calcium was 8.9. Total bilirubin, AST, ALT were normal. Alkaline phosphatase was elevated. Her total protein was 8.4, albumin was 3.7, lipase 137. Her CT scan of the head showed that the ventricles and sulci are within normal limits for her age. No midline shift or mass effect. Brain parenchyma is of normal attenuation, no hemorrhage or extraaxial collection. Posterior fossa and brainstem are unremarkable. Visualized paranasal sinuses and mastoid air cells are clear, no apparent calvarial abnormality. Her chest x-ray showed that the heart and pulmonary vasculature appeared within normal limits, faint airspace opacities and bibasilar lung could be minimal to fix the infiltrate, faint infiltrate in the right upper lobe of the lungs similar to prior exam. ASSESSMENT AND PLAN: The patient was admitted with community-acquired pneumonia. She was given ceftriaxone. I will add Zithromax. Continue with all her home medication and will follow her closely. DESTINEE SANON MD DR: Gracy JOB#: [id number] / [id number]
[2018-03-03 20:00] VITALS: BP 115/69
[2018-03-03] MEDS: ALBUTEROL SULFATE 2.5 MG/3 ML NEBU. NEB SCH (20:16)
[2018-03-03] MEDS: BUDESONIDE 0.5 MG/2 ML NEBU NEB SCH (20:16)
[2018-03-03] MEDS: CYCLOBENZAPRINE 10 MG TABLET. PO SCH (20:36)
[2018-03-03] MEDS: CELECOXIB 100 MG CAPSULE PO SCH (20:36)
[2018-03-03] MEDS: DOXYCYCLINE HYCLATE 100 MG TABLET PO SCH (20:36)
[2018-03-03] MEDS ORDERED: PROGESTERONE MICRONIZED 100 MG PO SCH (21:00)
[2018-03-03] MEDS ORDERED: ESTRADIOL 0.05 MG TP SCH (21:00)
[2018-03-03] MEDS ORDERED: NON FORMULARY ITEM (Fluticasone/Salmeterol (Advair 250-50 Diskus) 1 PUFF) IH SCH (21:00)
[2018-03-03 23:05] VITALS: BP 108/58
[2018-03-04 05:35] VITALS: BP 122/72
[2018-03-04] MEDS: ALBUTEROL SULFATE 2.5 MG/3 ML NEBU. NEB SCH ×2 (08:00→11:02)
[2018-03-04] MEDS: BUDESONIDE 0.5 MG/2 ML NEBU NEB SCH (08:00)
[2018-03-04] MEDS: CYCLOBENZAPRINE 10 MG TABLET. PO SCH (08:36)
[2018-03-04] MEDS: DOXYCYCLINE HYCLATE 100 MG TABLET PO SCH (08:36)
[2018-03-04] MEDS: CELECOXIB 100 MG CAPSULE PO SCH (08:37)
[2018-03-04] MEDS ORDERED: CETIRIZINE HCL 10 MG TABLET PO SCH (09:00)
[2018-03-04] MEDS ORDERED: NON FORMULARY ITEM (Fexofenadine Hcl (Allegra Allergy) 1 TAB) PO SCH (09:00)
[2018-03-04] MEDS ORDERED: LIDOCAINE (700MG/PATCH) PATCH. TD SCH (09:00)
[2018-03-04] MEDS ORDERED: LACTOBACILLUS RHAMNOSUS GG 1 CAPSULE. PO SCH (09:00)
[2018-03-04] MEDS ORDERED: ATORVASTATIN CALCIUM 20 MG TABLET PO SCH (09:00)
[2018-03-04 10:46] VITALS: BP 116/74
[2018-03-04] MEDS ORDERED: AZIT500T PO (13:34)
[2018-03-04] MEDS ORDERED: CEFP200T PO (13:34)
[2018-03-04] MEDS ORDERED: cefTRIAXone IV Push 1 GM VIAL. IVP SCH (14:00)
--- NOTE | 2018-03-04 15:24 | DS ---
DATE OF DISCHARGE: 03/04/2018 HOSPITAL COURSE: The patient is a 62-year-old female patient who came with a complaint of fever, chills, and generalized weakness. She complained also of a mild nonproductive cough, some pain behind her eyes. She was extensively investigated and was found to have bilateral lower lobe infiltrate and was admitted. CT scan of the head showed no intracranial abnormality. She was admitted for treatment of community-acquired pneumonia. She was treated with IV Rocephin and Zithromax. PHYSICAL EXAMINATION: GENERAL: When I saw her today, she was sitting comfortably in the edge of the bed, in no apparent distress. She denied any further episodes of cough. Denied any chills, rigors, or fever and except her desire to go home. When I saw her today, she looked well and was clearly in no apparent respiratory distress. No pallor, jaundice, cyanosis, or thyromegaly. No jugular venous distention. No limb edema. VITAL SIGNS: Her heart rate was 108, blood pressure 116/74, temperature was 98, respiratory rate 20, and oxygen saturation was 95% on room air. HEAD, EYES, EARS, NOSE, AND THROAT: Showed normocephalic, atraumatic. NECK: Supple. HEART: Showed normal first and second heart sounds with no gallop, rub, or murmur. CHEST: Clear to auscultation. No crepitation or rhonchi. ABDOMEN: Distended, soft, nontender. No guarding or rigidity. No organomegaly. All hernial orifices intact. Bowel sounds normal. NEUROLOGIC: She was awake, alert, responding appropriately. Cranial nerves intact. She moves extremities without difficulty. She ambulates without assistance or assistive devices. LABORATORY DATA: Her lab work was stable. DISCHARGE MEDICATIONS: She was discharged home to continue on following medications: Azithromycin 500 mg once a day, cefpodoxime proxetil 200 mg twice a day for 7 days, Lipitor 40 mg at bedtime, Celebrex 100 mg twice a day, Flexeril 10 mg twice a day, estradiol 1 patch topically once a week, fexofenadine or Hanna 180 mg once a day, Advair Diskus 250/50 one inhalation twice a day, DuoNeb, Combivent inhaler 1 puff 4 times a day, Lidoderm patch 1 patch topically on for 12 hours off for 12 hours, progesterone 100 mg capsule at bedtime. FINAL DISCHARGE DIAGNOSES: 1. Community-acquired pneumonia. To continue on oral cefpodoxime as well as Zithromax. 2. Sarcoidosis. 3. Chronic obstructive pulmonary disease. 4. Goiter. DESTINEE SANON MD DR: GAIL/anila JOB#: [id number] / [id number]
== END 2018-03-04 14:16 | disposition home or self-care (01) | DRG 871 ==
LOC: ER 12:45 → 1 SOUTH 16:12
PROVIDERS: ADMIT Internal Medicine; ATTEND Internal Medicine
DX: A41.9 Sepsis, unspecified organism (principal); J18.9 Pneumonia, unspecified organism; J44.0 Chronic obstructive pulmonary disease with (acute) lower respiratory infection; J98.11 Atelectasis; D86.9 Sarcoidosis, unspecified; E04.9 Nontoxic goiter, unspecified; Z88.0 Allergy status to penicillin; Z88.2 Allergy status to sulfonamides; Z88.8 Allergy status to other drugs, medicaments and biological substances; Z90.49 Acquired absence of other specified parts of digestive tract; Z79.899 Other long term (current) drug therapy
CPT/HCPCS: 36415; 70450; 71046; 80053; 81001; 83605; 83690; 84484; 85025; 85610; 86308; 87040; 93005; 94640; J0696; J7613; J7620; J7626; 99285-25; J7030

== ENCOUNTER → 2018-08-22 | Outpatient (CLI) | payer MEDICARE, OTHER ==
[2018-03-14 12:51] VITALS: BP 144/84
[~2018-08-22] MED LIST changes: +ALBU2.5V8 IH; -ALBU8.5H8 IH; +ATOR40TA PO; +AZIT500T PO; +ESTR1PAT10 TP; +FEXO180T81 PO; +FLUT1DIS3 IH; +HYDR-3165 PO; -HYDR-971 PO; +HYDR115S2 PO; +LIDODERM PATCH TOP; +METH4TAB2 PO; -MONT10TA6 PO; +MONT10TA80 PO; -OXYC-323 PO; -OXYC-327; +OXYC1TAB15 PO; +OXYC1TAB19; +PROG100C10 PO
--- NOTE | 2018-08-22 13:19 | RAD ---
Examination: CT chest without contrast HISTORY: History of lung nodule COMPARISON: 02/14/2018 TECHNIQUE: Axial CT images of the chest were performed without contrast. Coronal and sagittal reformats are performed Exposure: One or more of the following individualized dose reduction techniques were utilized for this examination: 1. Automated exposure control 2. Adjustment of the mA and/or kV according to patient size 3. Use of iterative reconstruction technique FINDINGS: There is a 2.8 cm hypodense nodule identified in the left lobe of the thyroid gland. The central airways are patent Small lymph nodes identified in the mediastinum with the largest measuring 1.2 cm. Coronary artery calcification is. The heart size grossly appears unremarkable. Mild bronchiectatic changes identified in the bilateral lungs. Mild prominent appearing interstitial lung markings in the bilateral lungs likely chronic interstitial changes similar to prior exam Unchanged 5 mm nodule identified in the right middle lobe of the lung. There is a vague ill-defined opacity identified in the right lower lobe of the lung measuring 1.4 cm a similar to prior exam. Mild scarring changes identified in the left lower lobe of the lung appear slightly prominent compared to prior exam. The visualized noncontrasted liver, spleen, adrenals grossly appears unremarkable No evidence of lytic bony destructive lesion IMPRESSION: 1. Unchanged 1.4 cm vague ill-defined opacity in the right lower lobe of the lung. 2. Minimal probable scarring changes identified in the left lower lobe of the lung slightly more prominent compared to prior exam in part due to difference in technique. Follow-up examination is recommended in 6 months. 3. Mild bronchiectatic changes. Electronically signed by: Arvin Kaba MD (08/22/2018 1:16 PM) [place] [id number]
== END | disposition home or self-care (01) ==
LOC: CT 09:47
PROVIDERS: ATTEND Internal Medicine Pulmonary Disease
DX: J47.9 Bronchiectasis, uncomplicated (principal); R91.1 Solitary pulmonary nodule; R91.8 Other nonspecific abnormal finding of lung field
CPT/HCPCS: 71250

== ENCOUNTER 2018-09-10 08:05 | Emergency (ER) | payer MEDICARE, OTHER ==
[~2018-09-10] VITALS: Ht 157.5 cm; Wt 80.0 kg
[~2018-09-10 08:05] MED LIST changes: -HYDR115S2 PO; -METH4TAB2 PO; +MONT10TA6 PO; -MONT10TA80 PO; -PROG100C10 PO; +PROG100C2 PO
[2018-09-10 09:15] LABS: INFLUENZA A PATIENT NEGATIVE (NEGATIVE); INFLUENZA B PATIENT NEGATIVE (NEGATIVE)
[2018-09-10] MEDS ORDERED: IV NORMAL SALINE 1,000ML 1,000 ML IV SCH (09:20)
--- NOTE | 2018-09-10 09:49 | PHYS DOC ---
Past History Past Medical History: Asthma, COPD, Other Additional Past Medical Histor: sarcoidosis of lung Past Surgical History: Cholecystectomy Smoking: Non-smoker Alcohol Use: Occasionally Drug Use: None Adult General Chief Complaint Chief Complaint: COUGH HPI HPI Patient is a 63 year old female who presents with complaining of cough and fever. Patient complaining of nonproductive cough with fever up to 101 since yesterday because headache and myalgia and sore throat. Patient denies nasal congestion, diarrhea, constipation, nausea and vomiting, sick contact. Patient states she took leftover oxycodone 80 morning with improvement of her pain. She has history of sarcoidosis and COPD without taking any medication at this time. Review of Systems Review of Systems Constitutional: Reports fever and chills Eyes: Denies change in visual acuity, redness, or eye pain [] HENT: Denies nasal congestion, reports sore throat [] Respiratory: With cough and shortness of breath Cardiovascular: No additional information not addressed in HPI [] GI: Denies abdominal pain, nausea, vomiting, bloody stools or diarrhea [] : Denies dysuria or hematuria [] Musculoskeletal: Denies back pain or joint pain [] Integument: Denies rash or skin lesions [] Neurologic: Denies headache, focal weakness or sensory changes [] Endocrine: Denies polyuria or polydipsia [] All other systems were reviewed and found to be within normal limits, except as documented in this note. Current Medications Current Medications Current Medications Medications (Trade) Dose Ordered Sig/Michael Start Time Stop Time Status Last Admin Dose Admin Acetaminophen (Tylenol) 1,000 mg 1X ONCE 09/10/18 10:00 09/10/18 10:01 Albuterol/ Ipratropium (Duoneb) 3 ml 1X ONCE 09/10/18 10:00 09/10/18 10:01 Methylprednisolone Sodium Succinate (SOLU-Medrol 125MG VIAL) 125 mg 1X ONCE 09/10/18 10:00 09/10/18 10:01 Sodium Chloride 1,000 ml @ 1,000 mls/hr Q1H 09/10/18 09:20 09/10/18 10:19 Allergies Allergies Allergies Coded Allergies Type Severity Reaction Last Updated Verified Penicillins Allergy Intermediate rash (HAD A TWO YEAR) 03/14/18 Yes Sulfa (Sulfonamide Antibiotics) Allergy Intermediate HIVES 03/14/18 Yes simvastatin Allergy Intermediate 03/14/18 Yes erythromycin base Adverse Reaction Intermediate 03/14/18 Yes Physical Exam Physical Exam Constitutional: Well developed, well nourished,mild distress, non-toxic appearance, febrile. [] HENT: Normocephalic, atraumatic, bilateral external ears normal, oropharynx moist, no oral exudates, nose normal. [] Eyes: PERRLA, EOMI, conjunctiva normal, no discharge. [] Neck: Normal range of motion, no tenderness, supple, no stridor. [] Cardiovascular: Tachycardia, no murmur [] Lungs & Thorax: Rhonchi and mild wheezing, no acute respiratory distress Abdomen: Bowel sounds normal, soft, no tenderness, no masses, no pulsatile masses. [] Skin: Warm, dry, no erythema, no rash. [] Back: No tenderness, no CVA tenderness. [] Extremities: No tenderness, no cyanosis, no clubbing, ROM intact, no edema. [] Neurologic: Alert and oriented X 3, normal motor function, normal sensory function, no focal deficits noted. [] Psychologic: Affect normal, judgement normal, mood normal. [] Current Patient Data Vital Signs Vital Signs Date Time Temp Pulse Resp B/P (MAP) Pulse Ox O2 Delivery O2 Flow Rate FiO2 09/10/18 09:36 120 18 105/58 (74) 98 Room Air 09/10/18 08:18 100.4 Lab Results Laboratory Tests Test 09/10/18 08:36 Influenza Type A (Rapid) Negative (NEGATIVE) Influenza Type B (Rapid) Negative (NEGATIVE) EKG EKG [] Radiology/Procedures Radiology/Procedures [address] [address] IMAGING REPORT Signed PATIENT: JOCELYNN MILLER ACCOUNT: [id number] : 1955 LOCATION: ER AGE: 63 SEX: F EXAM STATUS: REG ER ORD. PHYSICIAN: OPHELIA NOONAN MD REASON: shortness of breath PROCEDURE: CHEST PA & LATERAL Chest, 2 views, 09/10/2018: HISTORY: Cough, fever, COPD, asthma Comparison is made to a study from 03/14/2018. The heart size is normal. Emphysematous changes are present in the lungs. There are a few small scattered parenchymal opacities which appear unchanged and are probably scars. No new pulmonary abnormality is seen. There is no evidence of pleural fluid. IMPRESSION: 1. Emphysema with parenchymal scarring. 2. No new abnormality is detected. Electronically signed by: Fili Rebollar MD (09/10/2018 10:00 AM) [facility] DICTATED AND SIGNED BY: FILI REBOLLAR MD DATE: 09/10/18 0957 CC: OPHELIA NOONAN MD; MATTHEW DUBOIS MD ~ Course & Med Decision Making Course & Med Decision Making Pertinent Labs and Imaging studies reviewed. (See chart for details) Evaluation of patient in ER showed 63-year-old female patient with complaining of cough and shortness of breath and fever since yesterday. Patient had mild rhonchi and wheezing in her lung with fever up to 102 in ER. Patient treated with IV fluids, Solu-Medrol, Tylenol, DuoNeb and was feeling in ER. Patient had unremarkable labs including lactic acid and flu test. Chest x-ray showed emphysema without infiltration. Cristian to discharge patient home with diagnosis of COPD exacerbation. Patient had heart rate of 130s at arrival to ER that gradually decreased to 120s. Patient states she has history of tachycardia without known reason. Patient ambulated without problem and felt comfortable to go home. discharge: I've spoken with the patient and/or caregivers. I've explained the patient's condition, diagnosis and treatment plan based on information available to me at this time. I've answered the patient's and/or caregivers questions and addressed any concerns. The patient and/or caregivers have a good understanding the patient's diagnosis, condition and treatment plan as can be expected at this point. Vital signs have been stabilized. The patient's condition is stable for discharge from the emergency department. The patient will pursue further outpatient evaluation with her primary care provider or other designated consulting physician as outlined in the discharge instructions. Patient and/or caregivers are agreeable to this plan of care and follow-up instructions have been explained in detail. The patient and/or caregivers have received these instructions in written format and expressed understanding of these discharge instructions. The patient and her caregivers are aware that if any significant change in condition or worsening of symptoms should prompt him to immediately return to this of the closest emergency department. If an emergent department is not readily available I would encourage him to call 911. Sofia Disclaimer Eugenioon Disclaimer This electronic medical record was generated, in whole or in part, using a voice recognition dictation system. Departure Departure: Impression: Primary Impression: COPD exacerbation Additional Impressions: Fever History of sarcoidosis Sinus tachycardia Disposition: HOME, SELF-CARE (at 11 00) Referrals: MATTHEW DUBOIS MD (PCP) Patient Instructions: Chronic Obstructive Pulmonary Disease Exacerbation, Fever , Adult Additional Instructions: Drink plenty of liquids Follow-up with your primary care physician in 3-5 days Return to ER if not getting better Scripts Azithromycin (ZITHROMAX) 250 Mg Tablet 1 PKG PO UD for infection, #1 PKG Prov: OPHELIA NOONAN MD 09/10/18 Hydrocodone/Chlorphen P-Stirex (Tussionex Pennkinetic Susp) 115 Ml Yenifer.er.12h 5 ML PO BID for cough and congestion, #60 ML Prov: OPHELIA NOONAN MD 09/10/18 Methylprednisolone (MEDROL) 4 Mg Tab.ds.pk 1 PKG PO UD for inflammation, #1 PKG Prov: OPHELIA NOONAN MD 09/10/18 Problem Qualifiers Additional Impressions: Fever Fever type: unspecified Qualified Codes: R50.9 - Fever, unspecified OPHELIA NOONAN MD Sep 10, 2018 09:49
[2018-09-10] MEDS ORDERED: ACETAMINOPHEN 500 MG TABLET PO ONE (10:00)
[2018-09-10] MEDS ORDERED: IPRATRPIUM/ALBUTEROL 0.5/2.5MG 3 ML NEBU. NEB ONE (10:00)
[2018-09-10] MEDS ORDERED: methylPREDNISolone SOD SUCC PF 125 MG/2 ML VIAL. IV ONE (10:00)
--- NOTE | 2018-09-10 10:03 | RAD ---
Chest, 2 views, 09/10/2018: HISTORY: Cough, fever, COPD, asthma Comparison is made to a study from 03/14/2018. The heart size is normal. Emphysematous changes are present in the lungs. There are a few small scattered parenchymal opacities which appear unchanged and are probably scars. No new pulmonary abnormality is seen. There is no evidence of pleural fluid. IMPRESSION: 1. Emphysema with parenchymal scarring. 2. No new abnormality is detected. Electronically signed by: Fili Rebollar MD (09/10/2018 10:00 AM) [facility]
[2018-09-10 10:13] LABS: BASO % 1 % (0-3); EOS # 0.1 x10^3/uL (0.0-0.7); EOS % 1 % (0-3); HEMATOCRIT 40.7 % (36.0-47.0); HEMOGLOBIN 13.4 g/dL (12.0-15.5); LYMPH # 0.7 x10^3/uL (1.0-4.8); LYMPH % 11 % (24-48); MEAN CORPUSCULAR HEMOGLOBIN 27 pg (25-35); MEAN CORPUSCULAR HGB CONC 33 g/dL (31-37); MEAN CORPUSCULAR VOLUME 82 fL (79-100); MONO # 0.8 x10^3/uL (0.0-1.1); MONO % 13 % (0-9); NEUT # 4.6 x10^3uL (1.8-7.7); NEUT % 74 % (31-73); PLATELET COUNT 222 x10^3/uL (140-400); RED BLOOD COUNT 4.97 x10^6/uL (3.50-5.40); RED CELL DISTRIBUTION WIDTH 14.8 % (11.5-14.5); WHITE BLOOD COUNT 6.2 x10^3/uL (4.0-11.0)
[2018-09-10 10:25] LABS: ALBUMIN 3.5 g/dL (3.4-5.0); ALBUMIN/GLOBULIN RATIO 0.9 (1.0-1.7); CALCIUM 8.6 mg/dL (8.5-10.1); CREATININE 0.9 mg/dL (0.6-1.0); POTASSIUM 3.4 mmol/L (3.5-5.1); TOTAL BILIRUBIN 0.7 mg/dL (0.2-1.0); TOTAL PROTEIN 7.5 g/dL (6.4-8.2)
[2018-09-10 10:41] LABS: BACTERIA,URINE FEW /HPF (0-FEW); BILIRUBIN,URINE NEG (NEG); CLARITY,URINE HAZY; COLOR,URINE YELLOW; GLUCOSE,URINE NEG (NEG); NITRITE,URINE NEG (NEG); RBC,URINE 0 /HPF (0-2); SQUAMOUS EPITHELIAL CELL,UR FEW /LPF; UROBILINOGEN,URINE 0.2 mg/dL (0.2 mg/dL); WBC,URINE RARE /HPF (0-4)
[2018-09-10] MEDS ORDERED: AZIT250T PO (10:52)
[2018-09-10] MEDS ORDERED: HYDR115S2 PO (10:52)
[2018-09-10] MEDS ORDERED: METH4TAB2 PO (10:52)
[2018-09-10] MEDS ORDERED: IV NORMAL SALINE 50ML 50 ML ONE (10:57)
[2018-09-10] MEDS ORDERED: cefTRIAXone SODIUM 1 GM VIAL ONE (10:57)
[2018-09-10 11:38] VITALS: BP 107/65
== END 2018-09-10 12:04 | disposition home or self-care (01) ==
LOC: ER 08:05
DX: J44.1 Chronic obstructive pulmonary disease with (acute) exacerbation (principal); D86.0 Sarcoidosis of lung; R00.0 Tachycardia, unspecified; J45.909 Unspecified asthma, uncomplicated; Z88.0 Allergy status to penicillin; Z88.2 Allergy status to sulfonamides; Z88.1 Allergy status to other antibiotic agents; Z88.8 Allergy status to other drugs, medicaments and biological substances
CPT/HCPCS: 36415; 71046; 80053; 81001; 83605; 83880; 85025; 87040; 87804; 94640; 96365; 96375; 99284; J0696; J2930; J7620; J7030

== ENCOUNTER 2019-03-17 10:07 | Emergency (ER) | payer MEDICARE, OTHER ==
[~2019-03-17] VITALS: Ht 157.5 cm; Wt 79.4 kg
[2019-03-17] MEDS ORDERED: ASPIRIN 81 MG TAB.CHEW PO ONE (10:45)
--- NOTE | 2019-03-17 10:55 | RAD ---
CHEST PA LATERAL History: Left upper extremity paresthesias Comparison: 09/10/2018 two-view chest x-ray exam. 02/14/2018 and 08/22/2018 CT chest without contrast exams. Findings: PA and lateral views of chest were obtained. The cardiomediastinal silhouette is normal. Pulmonary vasculature is normal. Pulmonary hyperinflation is present. Interstitial thickening involving the right upper lung field laterally is noted. Small nodule involving the left lower lung field is similar upon correlation previous CT exams. No pleural effusion or pneumothorax is seen. There is no acute bone abnormality. Right upper quadrant surgical clips are present. IMPRESSION: COPD. No new infiltrate. Electronically signed by: Jake García MD (03/17/2019 10:52 AM) [facility]
[2019-03-17 11:00] LABS: BASO # 0.1 x10^3/uL (0.0-0.2); BASO % 1 % (0-3); EOS # 0.3 x10^3/uL (0.0-0.7); EOS % 5 % (0-3); HEMOGLOBIN 13.2 g/dL (12.0-15.5); LYMPH # 2.5 x10^3/uL (1.0-4.8); LYMPH % 40 % (24-48); MEAN CORPUSCULAR HEMOGLOBIN 27 pg (25-35); MEAN CORPUSCULAR HGB CONC 33 g/dL (31-37); MEAN CORPUSCULAR VOLUME 83 fL (79-100); MONO # 0.5 x10^3/uL (0.0-1.1); MONO % 9 % (0-9); NEUT # 2.8 x10^3uL (1.8-7.7); NEUT % 45 % (31-73); PLATELET COUNT 288 x10^3/uL (140-400); RED BLOOD COUNT 4.85 x10^6/uL (3.50-5.40); RED CELL DISTRIBUTION WIDTH 14.9 % (11.5-14.5); WHITE BLOOD COUNT 6.1 x10^3/uL (4.0-11.0)
[2019-03-17 11:16] VITALS: BP 124/75
--- NOTE | 2019-03-17 11:27 | PHYS DOC ---
Past History Past Medical History: Asthma, COPD, Other Additional Past Medical Histor: sarcoidosis of lung Past Surgical History: Cholecystectomy Smoking: Non-smoker Alcohol Use: Occasionally Drug Use: None Adult General Chief Complaint Chief Complaint: OTHER COMPLAINTS HPI HPI Patient is a 63-year-old female who presents to emergency Department with complaints of left arm tingling off and on since last night. She was scheduled for evaluation with neurology however they were concerned and wanted to make sure there was no concern for cardiac event. She denies any chest pain, shortness of breath, nausea, vomiting. Review of Systems Review of Systems Constitutional: Denies fever or chills [] Eyes: Denies change in visual acuity, redness, or eye pain [] HENT: Denies nasal congestion or sore throat [] Respiratory: Denies cough or shortness of breath [] Cardiovascular: No additional information not addressed in HPI [] GI: Denies abdominal pain, nausea, vomiting, bloody stools or diarrhea [] : Denies dysuria or hematuria [] Musculoskeletal: Tingling down her left arm Integument: Denies rash or skin lesions [] Neurologic: Denies headache, focal weakness or sensory changes [] Endocrine: Denies polyuria or polydipsia [] All other systems were reviewed and found to be within normal limits, except as documented in this note. Current Medications Current Medications Current Medications Medications (Trade) Dose Ordered Sig/Michael Start Time Stop Time Status Last Admin Dose Admin Aspirin (Children'S Aspirin) 324 mg 1X ONCE 03/17/19 10:45 03/17/19 10:46 DC Allergies Allergies Allergies Coded Allergies Type Severity Reaction Last Updated Verified Penicillins Allergy Intermediate rash (HAD A TWO YEAR) 03/14/18 Yes Sulfa (Sulfonamide Antibiotics) Allergy Intermediate HIVES 03/14/18 Yes simvastatin Allergy Intermediate 03/14/18 Yes erythromycin base Adverse Reaction Intermediate 03/14/18 Yes Physical Exam Physical Exam Constitutional: Well developed, well nourished, no acute distress, non-toxic appearance. [] HENT: Normocephalic, atraumatic, bilateral external ears normal, oropharynx moist, no oral exudates, nose normal. [] Neck: Normal range of motion, no tenderness, supple, no stridor. [] Cardiovascular:Heart rate regular rhythm, no murmur [] Lungs & Thorax: Bilateral breath sounds clear to auscultation [] Abdomen: Bowel sounds normal, soft, no tenderness, no masses, no pulsatile masses. [] Skin: Warm, dry, no erythema, no rash. [] Extremities: No tenderness, no cyanosis, no clubbing, ROM intact, no edema. [] Neurologic: Alert and oriented X 3, no focal deficits noted. [] Psychologic: Affect normal, judgement normal, mood normal. [] Current Patient Data Vital Signs Vital Signs Date Time Temp Pulse Resp B/P (MAP) Pulse Ox O2 Delivery O2 Flow Rate FiO2 03/17/19 11:16 96 124/75 (91) 98 03/17/19 10:12 97.5 18 Room Air Lab Results Laboratory Tests Test 03/17/19 10:45 03/17/19 12:22 White Blood Count 6.1 x10^3/uL Red Blood Count 4.85 x10^6/uL Hemoglobin 13.2 g/dL Hematocrit 40.0 % Mean Corpuscular Volume 83 fL Mean Corpuscular Hemoglobin 27 pg Mean Corpuscular Hemoglobin Concent 33 g/dL Red Cell Distribution Width 14.9 % Platelet Count 288 x10^3/uL Neutrophils (%) (Auto) 45 % Lymphocytes (%) (Auto) 40 % Monocytes (%) (Auto) 9 % Eosinophils (%) (Auto) 5 % Basophils (%) (Auto) 1 % Neutrophils # (Auto) 2.8 x10^3uL Lymphocytes # (Auto) 2.5 x10^3/uL Monocytes # (Auto) 0.5 x10^3/uL Eosinophils # (Auto) 0.3 x10^3/uL Basophils # (Auto) 0.1 x10^3/uL Sodium Level 143 mmol/L Potassium Level 4.2 mmol/L Chloride Level 107 mmol/L Carbon Dioxide Level 27 mmol/L Anion Gap 9 Blood Urea Nitrogen 10 mg/dL Creatinine 0.9 mg/dL Estimated GFR (Cockcroft-Gault) 77.0 BUN/Creatinine Ratio 11 Glucose Level 116 mg/dL Calcium Level 8.5 mg/dL Total Bilirubin 0.5 mg/dL Aspartate Amino Transf (AST/SGOT) 13 U/L Alanine Aminotransferase (ALT/SGPT) 18 U/L Alkaline Phosphatase 131 U/L Creatine Kinase 225 U/L Creatine Kinase MB (Mass) 0.8 ng/mL Creatine Kinase MB Relative Index 0.4 % Troponin I Quantitative < 0.017 ng/mL < 0.017 ng/mL Total Protein 7.0 g/dL Albumin 3.3 g/dL Albumin/Globulin Ratio 0.9 Current Medications Medications (Trade) Dose Ordered Sig/Michael Route PRN Reason Start Time Stop Time Status Last Admin Dose Admin Aspirin (Children'S Aspirin) 324 mg 1X ONCE PO 03/17/19 10:45 03/17/19 10:46 DC 03/17/19 12:09 Laboratory Tests Test 03/17/19 10:45 White Blood Count 6.1 x10^3/uL (4.0-11.0) Red Blood Count 4.85 x10^6/uL (3.50-5.40) Hemoglobin 13.2 g/dL (12.0-15.5) Hematocrit 40.0 % (36.0-47.0) Mean Corpuscular Volume 83 fL (79-100) Mean Corpuscular Hemoglobin 27 pg (25-35) Mean Corpuscular Hemoglobin Concent 33 g/dL (31-37) Red Cell Distribution Width 14.9 % (11.5-14.5) H Platelet Count 288 x10^3/uL (140-400) Neutrophils (%) (Auto) 45 % (31-73) Lymphocytes (%) (Auto) 40 % (24-48) Monocytes (%) (Auto) 9 % (0-9) Eosinophils (%) (Auto) 5 % (0-3) H Basophils (%) (Auto) 1 % (0-3) Neutrophils # (Auto) 2.8 x10^3uL (1.8-7.7) Lymphocytes # (Auto) 2.5 x10^3/uL (1.0-4.8) Monocytes # (Auto) 0.5 x10^3/uL (0.0-1.1) Eosinophils # (Auto) 0.3 x10^3/uL (0.0-0.7) Basophils # (Auto) 0.1 x10^3/uL (0.0-0.2) EKG EKG EKG reviewed 10:30, normal sinus rhythm[] Radiology/Procedures Radiology/Procedures [address], [place] [address] IMAGING REPORT Signed PATIENT: JOCELYNN MILLER ACCOUNT: [id number] : 1955 LOCATION: ER AGE: 63 SEX: F EXAM STATUS: REG ER ORD. PHYSICIAN: SANTOSH THIBODEAUX MD REASON: Left arm tingling, risk factors for CAD PROCEDURE: CHEST PA & LATERAL CHEST PA LATERAL History: Left upper extremity paresthesias Comparison: 09/10/2018 two-view chest x-ray exam. 02/14/2018 and 08/22/2018 CT chest without contrast exams. Findings: PA and lateral views of chest were obtained. The cardiomediastinal silhouette is normal. Pulmonary vasculature is normal. Pulmonary hyperinflation is present. Interstitial thickening involving the right upper lung field laterally is noted. Small nodule involving the left lower lung field is similar upon correlation previous CT exams. No pleural effusion or pneumothorax is seen. There is no acute bone abnormality. Right upper quadrant surgical clips are present. IMPRESSION: COPD. No new infiltrate. Electronically signed by: Jake Caruso MD (03/17/2019 10:52 AM) [facility] DICTATED AND SIGNED BY: JAKE CARUSO MD DATE: 03/17/19 1052 CC: SANTOSH THIBODEAUX MD; MATTHEW DUBOIS MD ~ Course & Med Decision Making Course & Med Decision Making Pertinent Labs and Imaging studies reviewed. (See chart for details) Patient presented in the emergency Department with complaints of left arm tingling off and on since yesterday. No acute chest pain upon initial evaluation. I did reevaluate his and imaging reviewed. Troponin negative �2, likely related to cervical radiculopathy. Dragon Disclaimer Dragon Disclaimer This electronic medical record was generated, in whole or in part, using a voice recognition dictation system. Departure Departure: Impression: Primary Impression: Cervical radiculopathy Disposition: 01 HOME, SELF-CARE Condition: STABLE Referrals: MATTHEW DUBOIS MD (PCP) Patient Instructions: Cervical Radiculopathy, [id number] HEART Score for Chest Pain PTs The HEART Score for CP Pts HEART Score for Chest Pain: HEART Score for Chest Pain Response (Comments) Value History Slighlty/Non-Suspicious 0 ECG Normal 0 Age >45 - < 65 1 Risk Factors 1 or 2 Risk Factors 1 Troponin < Normal Limit 0 Total 2 Risk Factors: Risk Factors: DM, Current or recent (<one month) smoker, HTN, HLP, family history of CAD, obesity. Risk Scores: Score 0 - 3: 2.5% MACE over next 6 weeks - Discharge Home Score 4 - 6: 20.3% MACE over next 6 weeks - Admit for Clinical Observation Score 7 - 10: 72.7% MACE over next 6 weeks - Early Invasive Strategies SANTOSH THIBODEAUX MD Mar 17, 2019 11:27
[2019-03-17 11:36] LABS: ALBUMIN 3.3 g/dL (3.4-5.0); ALBUMIN/GLOBULIN RATIO 0.9 (1.0-1.7); CALCIUM 8.5 mg/dL (8.5-10.1); CREATININE 0.9 mg/dL (0.6-1.0); POTASSIUM 4.2 mmol/L (3.5-5.1); TOTAL BILIRUBIN 0.5 mg/dL (0.2-1.0)
--- NOTE | 2019-03-17 13:47 | EKG ---
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
== END 2019-03-17 13:12 | disposition home or self-care (01) ==
LOC: ER 10:07
DX: M54.12 Radiculopathy, cervical region (principal); J44.9 Chronic obstructive pulmonary disease, unspecified; Z88.0 Allergy status to penicillin; Z88.2 Allergy status to sulfonamides; Z88.1 Allergy status to other antibiotic agents; Z88.8 Allergy status to other drugs, medicaments and biological substances
CPT/HCPCS: 36415; 71046; 80053; 82553; 84484; 85025; 93005; 99285

== ENCOUNTER → 2019-03-17 | Outpatient (CLI) | payer MEDICARE, OTHER ==
[~2019-03-17] MED LIST changes: +HYDR115S2 PO; +METH4TAB2 PO; -MONT10TA6 PO; +MONT10TA80 PO; +PROG100C10 PO; -PROG100C2 PO
[2019-03-17 11:16] VITALS: BP 124/75
--- NOTE | 2019-03-17 17:03 | RAD ---
CT CHEST WO CONTRAST Indication: Lung nodule Technique: Noncontrast CT imaging was performed of the chest, multiplanar reconstruction images submitted. One or more of the following individualized dose reduction techniques were utilized for this examination: 1. Automated exposure control 2. Adjustment of the mA and/or kV according to patient size 3. Use of iterative reconstruction technique. Comparison: 08/22/2018; older exam February 14, 2018 Findings: There are some scattered areas of reticular density such as of the bilateral lower lobes and right upper lobe, overall appearance very similar dating back to February 14, 2018 exam. Small focus of relative nodularity in the right lower lobe image 48 series 2 about 0.4 cm is similar. There is emphysema. There is no new pericardial or pleural fluid, pneumothorax, infiltrate. Major airways are overall patent. There is mild bronchiectasis right upper lobe unchanged. There is some coronary calcification. Thoracic aortic caliber is within normal limits. No new significantly enlarged nodes are identified of the chest. There is again thyromegaly and left thyroid mass estimated about 2.9 cm. IMPRESSION: 1. Reticular density bilaterally has not convincingly changed back to the previous February 2018 exam, no new infiltrate. There is again mild bronchiectasis of the right upper lobe. There is emphysema. 2. There is again thyromegaly and left thyroid mass. Electronically signed by: John Wheatley MD (03/17/2019 5:01 PM) [facility]
== END | disposition home or self-care (01) ==
LOC: CT 13:20
PROVIDERS: ATTEND Internal Medicine Pulmonary Disease
DX: J43.9 Emphysema, unspecified (principal); J47.9 Bronchiectasis, uncomplicated; I25.10 Atherosclerotic heart disease of native coronary artery without angina pectoris; E01.0 Iodine-deficiency related diffuse (endemic) goiter; E07.89 Other specified disorders of thyroid
CPT/HCPCS: 71250

== ENCOUNTER 2019-05-18 19:44 | Emergency (ER) | payer MEDICARE, OTHER ==
[~2019-05-18] VITALS: Ht 157.5 cm; Wt 80.0 kg
[2019-05-18 19:57] VITALS: BP 158/88
[2019-05-18] MEDS ORDERED: ERYT1OIN6 OP (20:14)
--- NOTE | 2019-05-18 20:14 | PHYS DOC ---
Past History Past Medical History: Asthma, COPD, Other Additional Past Medical Histor: sarcoidosis of lung, back and neck problems Past Surgical History: Cholecystectomy Smoking: Non-smoker Alcohol Use: Occasionally Drug Use: None Adult General Chief Complaint Chief Complaint: EYE PROBLEMS HPI HPI Patient is a 63-year-old female who presents with complaint of redness, foreign body sensation and purulent drainage to left eye started earlier this evening. She states that she has recently had an upper respiratory infection. She denies any injury to the eye. She does indicate that she had wiped quite a bit of drainage from the eye when she first arrived and is already noticing additional drainage. She denies any change in vision.[] Review of Systems Review of Systems Constitutional: Denies fever or chills [] Eyes: Denies change in visual acuity. Positive redness and purulent drainage. [] HENT: Positive nasal congestion with postnasal drip[] Respiratory: Denies cough or shortness of breath [] Cardiovascular: No additional information not addressed in HPI [] Allergies Allergies Allergies Coded Allergies Type Severity Reaction Last Updated Verified Penicillins Allergy Intermediate rash (HAD A TWO YEAR) 03/14/18 Yes Sulfa (Sulfonamide Antibiotics) Allergy Intermediate HIVES 03/14/18 Yes simvastatin Allergy Intermediate 03/14/18 Yes erythromycin base Adverse Reaction Intermediate 03/14/18 Yes Physical Exam Physical Exam Constitutional: Well developed, well nourished, no acute distress, non-toxic appearance. [] HENT: Normocephalic, atraumatic, bilateral external ears normal, oropharynx moist, no oral exudates, nose normal. [] Eyes: PERRLA, EOMI, there is scleral and conjunctival injection to the left eye with her he landed drainage noted, especially at the medial canthus. [] Neck: Normal range of motion, no tenderness, supple, no stridor. [] Cardiovascular:Heart rate regular rhythm, no murmur [] Lungs & Thorax: Bilateral breath sounds clear to auscultation [] Current Patient Data Vital Signs Vital Signs Date Time Temp Pulse Resp B/P (MAP) Pulse Ox O2 Delivery O2 Flow Rate FiO2 05/18/19 19:57 98.8 104 20 98 Room Air EKG EKG [] Radiology/Procedures Radiology/Procedures [] Course & Med Decision Making Course & Med Decision Making Pertinent Labs and Imaging studies reviewed. (See chart for details) [] Dragon Disclaimer Dragon Disclaimer This electronic medical record was generated, in whole or in part, using a voice recognition dictation system. Departure Departure: Impression: Primary Impression: Conjunctivitis Disposition: 01 HOME, SELF-CARE Condition: STABLE Referrals: ROSSY MISHRA (PCP) Patient Instructions: Bacterial Conjunctivitis Scripts Erythromycin Base (Erythromycin) 1 Gm Oint...g. 0.5 INCH OP TID for infection, #3.5 GM Prov: CALISTA RIOS Jr. DO 05/18/19 Problem Qualifiers Primary Impression: Conjunctivitis Conjunctivitis type: acute Acute conjunctivitis type: bacterial Laterality: left Qualified Codes: H10.32 - Unspecified acute conjuncti vitis, left eye CALISTA RIOS Jr. DO May 18, 2019 20:14
[2019-05-18] MEDS ORDERED: ERYTHROMYCIN 0.5% OPHTH OINTMENT 1GM TUBE. OS ONE (20:15)
== END 2019-05-18 20:32 | disposition home or self-care (01) ==
LOC: ER 19:44
DX: H10.32 Unspecified acute conjunctivitis, left eye (principal); J44.9 Chronic obstructive pulmonary disease, unspecified; Z88.0 Allergy status to penicillin; Z88.2 Allergy status to sulfonamides; Z88.8 Allergy status to other drugs, medicaments and biological substances
CPT/HCPCS: 99283

== ENCOUNTER 2019-05-22 14:31 | Emergency (ER) | payer MEDICARE, OTHER ==
[~2019-05-22] VITALS: Ht 157.5 cm; Wt 80.0 kg
[~2019-05-22 14:31] MED LIST changes: +ERYT1OIN6 OP
[2019-05-22 15:22] VITALS: BP 137/85
--- NOTE | 2019-05-22 15:29 | RAD ---
Chest, PA and Lateral: Technique: PA and lateral views of the chest were obtained. History: Cough. Comparison: 03/17/2019. Findings: The cardiomediastinal silhouette grossly appears unremarkable. Faint scattered airspace opacities identified likely atelectasis or infiltrates. Mild degenerative changes thoracic spine. IMPRESSION: Faint scattered airspace opacities identified in the bilateral lungs likely atelectasis or infiltrates. Follow-up to resolution. Electronically signed by: Arvin Kaba MD (05/22/2019 3:26 PM) [facility]
[2019-05-22] MEDS ORDERED: BENZ100C PO (15:45)
[2019-05-22] MEDS ORDERED: AZIT250T6 PO (15:45)
[2019-05-22] MEDS ORDERED: DEXAMETHASONE 4 MG TABLET PO ONE (15:45)
[2019-05-22] MEDS ORDERED: IPRATRPIUM/ALBUTEROL 0.5/2.5MG 3 ML NEBU. NEB ONE (15:45)
--- NOTE | 2019-05-22 15:45 | PHYS DOC ---
Past History Additional Past Medical Histor: sarcoidosis of lung, back and neck problems Past Surgical History: No Surgical History Smoking: Non-smoker Alcohol Use: None Drug Use: None Adult General Chief Complaint Chief Complaint: COUGH HPI HPI 63 year old female presents with report of several day history of cough and nasal congestion. Reports subjective fever/chills. Denies smoking history. Reports history of recent conjunctivitis. Review of Systems Review of Systems Constitutional: Reports subjective fever and chills Eyes: Denies change in visual acuity; reports redness which has resolved HENT: Reports nasal congestion or sore throat Respiratory: Denies shortness of breath; reports cough GI: Denies abdominal pain, nausea, or vomiting Musculoskeletal: Denies back pain or joint pain Integument: Denies rash or skin lesions Neurologic: Denies headache, focal weakness or sensory changes Complete systems were reviewed and found to be within normal limits, except as documented in this note. Current Medications Current Medications Current Medications Medications (Trade) Dose Ordered Sig/Michael Start Time Stop Time Status Last Admin Dose Admin Albuterol/ Ipratropium (Duoneb) 3 ml 1X ONCE 05/22/19 15:45 05/22/19 15:41 DC Dexamethasone (Decadron) 10 mg 1X ONCE 05/22/19 15:45 05/22/19 15:46 Allergies Allergies Allergies Coded Allergies Type Severity Reaction Last Updated Verified Penicillins Allergy Intermediate rash (HAD A TWO YEAR) 03/14/18 Yes Sulfa (Sulfonamide Antibiotics) Allergy Intermediate HIVES 03/14/18 Yes simvastatin Allergy Intermediate 03/14/18 Yes erythromycin base Adverse Reaction Intermediate 03/14/18 Yes Physical Exam Physical Exam Constitutional: Well developed, well nourished, no acute distress, non-toxic appearance. [] HENT: Normocephalic, atraumatic, bilateral external ears normal, oropharynx moist, no oral exudates, nose normal. [] Eyes: PERRLA, EOMI, conjunctiva normal, no discharge. [] Neck: Normal range of motion, no tenderness, supple, no stridor. [] Cardiovascular:Heart rate regular rhythm, no murmur [] Lungs & Thorax: Bilateral breath sounds clear to auscultation [] Abdomen: Bowel sounds normal, soft, no tenderness, no masses, no pulsatile masses. [] Skin: Warm, dry, no erythema, no rash. [] Back: No tenderness, no CVA tenderness. [] Extremities: No tenderness, no cyanosis, no clubbing, ROM intact, no edema. [] Neurologic: Alert and oriented X 3, normal motor function, normal sensory function, no focal deficits noted. [] Psychologic: Affect normal, judgement normal, mood normal. [] Current Patient Data Vital Signs Vital Signs Date Time Temp Pulse Resp B/P (MAP) Pulse Ox O2 Delivery O2 Flow Rate FiO2 05/22/19 15:22 98.4 127 16 93 EKG EKG [] Radiology/Procedures Radiology/Procedures PROCEDURE: CHEST PA & LATERAL Chest, PA and Lateral: Technique: PA and lateral views of the chest were obtained. History: Cough. Comparison: 03/17/2019. Findings: The cardiomediastinal silhouette grossly appears unremarkable. Faint scattered airspace opacities identified likely atelectasis or infiltrates. Mild degenerative changes thoracic spine. IMPRESSION: Faint scattered airspace opacities identified in the bilateral lungs likely atelectasis or infiltrates. Follow-up to resolution. Electronically signed by: Arvin Kaba MD (05/22/2019 3:26 PM) [facility] Course & Med Decision Making Course & Med Decision Making Pertinent Imaging studies reviewed. (See chart for details) Patient presents with HPI and physical exam consistent for acute bronchitis. VS stable. CXR without focal opacities. Empiric antibiotics given. Patient stable for discharge home with outpatient follow-up with PCP. Discussed findings and plan with patient, who acknowledges understanding and agreement. Dragon Disclaimer Dragon Disclaimer This electronic medical record was generated, in whole or in part, using a voice recognition dictation system. Departure Departure: Impression: Primary Impression: Bronchitis Disposition: 01 HOME, SELF-CARE Condition: STABLE Referrals: ROSSY MISHRA (PCP) Patient Instructions: Acute Bronchitis, [id number] Additional Instructions: Continue previously Mucinex and nebulizer treatments. Scripts Benzonatate (TESSALON PERLE) 100 Mg Capsule 1 CAP PO TID PRN for COUGH, #21 CAP Prov: SANTA CAMACHO DO 05/22/19 Azithromycin (AZITHROMYCIN TABLET) 250 Mg Tablet 1 PKG PO UD for bronchitis, #6 TAB Take 2 tablets today and then one tablet every day thereafter for the next 4 days Prov: SANTA CAMACHO DO 05/22/19 SANTA CAMACHO DO May 22, 2019 15:45
== END 2019-05-22 15:50 | disposition home or self-care (01) ==
LOC: ER 14:31
DX: J40 Bronchitis, not specified as acute or chronic (principal); Z88.0 Allergy status to penicillin; Z88.1 Allergy status to other antibiotic agents; Z88.2 Allergy status to sulfonamides
CPT/HCPCS: 71046; 94640; 99284; J8540

== ENCOUNTER 2020-02-16 16:22 | Emergency (ER) | payer MEDICARE, OTHER ==
[~2020-02-16] VITALS: Ht 157.5 cm; Wt 80.5 kg
[~2020-02-16 16:22] MED LIST changes: +AZIT250T6 PO; +BENZ100C PO; -LIDO15SO2 MM; +LIDO20SO10 MM
[2020-02-16 16:34] VITALS: BP 111/65
[2020-02-16 17:35] LABS: BILIRUBIN,URINE NEG (NEG); CLARITY,URINE HAZY; COLOR,URINE YELLOW; GLUCOSE,URINE NEG (NEG); NITRITE,URINE NEG (NEG); UROBILINOGEN,URINE 0.2 mg/dL (0.2 mg/dL)
[2020-02-16 17:36] LABS: BACTERIA,URINE MOD /HPF (0-FEW); SQUAMOUS EPITHELIAL CELL,UR MOD /LPF
--- NOTE | 2020-02-16 17:39 | PHYS DOC ---
Past History Past Medical History: COPD Additional Past Medical Histor: sarcoidosis of lung, back and neck problems Past Surgical History: No Surgical History Smoking: Non-smoker Alcohol Use: None Drug Use: None General Adult EDM: Chief Complaint: BACK PAIN OR INJURY HPI: HPI: Patient is a 64 year old female who presents for evaluation of acute on chronic back pain and spasms. She states the symptoms are worse on her right lower back area. She states since about noon today the symptoms were worse. Patient has history of chronic back pain and been taking Celebrex as well as an old Tylenol with codeine today. Patient denies any fall, injury or trauma. Patient has had multiple images of her back including MRI scans. Patient denied loss of bowel bladder control, footdrop or saddle anesthesia. Patient denies any obvious urinary complaints Review of Systems: Review of Systems: Constitutional: Denies fever or chills Eyes: Denies change in visual acuity HENT: Denies nasal congestion or sore throat Respiratory: Denies cough or shortness of breath Cardiovascular: Denies chest pain or edema GI: Denies abdominal pain, nausea, vomiting, bloody stools or diarrhea : Denies dysuria Musculoskeletal: right side back pain no joint pain Integument: Denies rash Neurologic: Denies headache, focal weakness or sensory changes Endocrine: Denies polyuria or polydipsia Lymphatic: Denies swollen glands Psychiatric: Denies depression or anxiety Heart Score: Risk Factors: Risk Factors: DM, Current or recent (<one month) smoker, HTN, HLP, family history of CAD, obesity. Risk Scores: Score 0 - 3: 2.5% MACE over next 6 weeks - Discharge Home Score 4 - 6: 20.3% MACE over next 6 weeks - Admit for Clinical Observation Score 7 - 10: 72.7% MACE over next 6 weeks - Early Invasive Strategies Allergies: Allergies: Allergies Coded Allergies Type Severity Reaction Last Updated Verified Penicillins Allergy Intermediate rash (HAD A TWO YEAR) 03/14/18 Yes Sulfa (Sulfonamide Antibiotics) Allergy Intermediate HIVES 03/14/18 Yes simvastatin Allergy Intermediate 03/14/18 Yes erythromycin base Adverse Reaction Intermediate 03/14/18 Yes Physical Exam: PE: Constitutional: Well developed, well nourished, mild acute distress, non-toxic appearance. [] HENT: Normocephalic, atraumatic, bilateral external ears normal, oropharynx moist, no oral exudates, nose normal. [] Eyes: PERRL, EOMI, conjunctiva normal, no discharge. [] Neck: Normal range of motion, no tenderness, supple, no stridor. [] Cardiovascular:Heart rate regular rhythm, no murmur [] Lungs & Thorax: Bilateral breath sounds clear to auscultation [] Abdomen: Bowel sounds normal, soft, no tenderness, no masses, no pulsatile masses. [] Skin: Warm, dry, no erythema, no rash. [] Back: mild right side tenderness, no CVA tenderness. [] Extremities: No tenderness, no cyanosis, no clubbing, ROM intact, no edema. [] Neurologic: Alert and oriented X 3, normal motor function, normal sensory function, no focal deficits noted. [] Psychologic: Affect normal, judgement normal, mood normal. [] Current Patient Data: Labs: Laboratory Tests Test 02/16/20 17:15 Urine Collection Type Unknown Urine Color Yellow Urine Clarity Hazy Urine pH 5.5 Urine Specific [employer] 1.020 Urine Protein Neg Urine Glucose (UA) Neg mg/dL Urine Ketones (Stick) Neg mg/dL Urine Blood Trace Urine Nitrite Neg Urine Bilirubin Neg Urine Urobilinogen Dipstick 0.2 mg/dL Urine Leukocyte Esterase Neg Urine RBC 1-2 /HPF Urine WBC 1-4 /HPF Urine Squamous Epithelial Cells Mod /LPF Urine Bacteria Mod /HPF Vital Signs: Vital Signs Date Time Temp Pulse Resp B/P (MAP) Pulse Ox O2 Delivery O2 Flow Rate FiO2 02/16/20 16:34 98.1 100 16 111/65 (80) 100 Room Air EKG: EKG: [] Radiology/Procedures: Radiology/Procedures: [] Course & Med Decision Making: Course & Med Decision Making Pertinent Labs and Imaging studies reviewed. (See chart for details) [] Dragon Disclaimer: Dragon Disclaimer: This electronic medical record was generated, in whole or in part, using a voice recognition dictation system. 1750 stable, feeling somewhat better at this time. Prescription for limited number of tramadol given #12. Considerations included UTI versus chronic back pain. Patient had no loss of bowel bladder control, footdrop or saddle anesthesia. No indication for new x-rays of her back Departure Departure: Impression: Primary Impression: Back strain Qualified Codes: S39.012D - Strain of muscle, fascia and tendon of lower back, subsequent encounter Disposition: HOME/RESIDENCE PRIOR TO ADM Condition: STABLE Referrals: ROSSY MISHRA (PCP) Patient Instructions: Back Pain, Adult Additional Instructions: Rest, no heavy lifting, call and see your doctor right away follow-up. Use medication as directed. You may supplement with ibuprofen over the counter up to 800 mg 3 times a day Scripts Tramadol Hcl (TRAMADOL HCL) 50 Mg Tablet 50 MG PO PRN Q6HRS PRN for PAIN, #14 TAB Prov: DAVID APPIAH DO 02/16/20 Justification of Admission: Justification of Admission: Justification of Admission Dx: N/A DAVID APPIAH DO Feb 16, 2020 17:39
[2020-02-16] MEDS ORDERED: TRAM50TA PO (17:56)
== END 2020-02-16 18:00 | disposition home or self-care (01) ==
LOC: ER 16:22
DX: S39.012A Strain of muscle, fascia and tendon of lower back, initial encounter (principal); G89.29 Other chronic pain; J44.9 Chronic obstructive pulmonary disease, unspecified; Z88.0 Allergy status to penicillin; Z88.2 Allergy status to sulfonamides; Z88.1 Allergy status to other antibiotic agents; Z88.8 Allergy status to other drugs, medicaments and biological substances; X58.XXXA Exposure to other specified factors, initial encounter; Y93.89 Activity, other specified; Y92.89 Other specified places as the place of occurrence of the external cause; Y99.8 Other external cause status
CPT/HCPCS: 81001; 87086; 99283

== ENCOUNTER → 2020-03-23 | Outpatient (CLI) | payer MEDICARE, OTHER ==
[~2020-03-23] MED LIST changes: +TRAM50TA PO
--- NOTE | 2020-03-23 10:16 | RAD ---
EXAM: CT CHEST WITHOUT CONTRAST HISTORY: Follow-up lung nodule COMPARISON: CT chest 03/17/[address] chest 03/09/2016 TECHNIQUE: Helical CT of the chest performed without contrast. Coronal and sagittal reformats were obtained. One or more of the following individualized dose reduction techniques were utilized for this examination: 1. Automated exposure control 2. Adjustment of the mA and/or kV according to patient size 3. Use of iterative reconstruction technique. FINDINGS: Thyroid gland and thoracic inlet: Thyroid gland is enlarged with a 2.4 cm hyperdense nodule in the left lobe/isthmus, unchanged. No thoracic inlet lymphadenopathy. Heart and great vessels: The heart is normal in size. No pericardial effusion. There are a few calcifications in the coronary arteries. The thoracic aorta is normal in caliber with mild calcified atherosclerosis. Mediastinum and riley: No lymphadenopathy. Lungs and pleura: Reticular opacities in the right upper lobe and superior segment right lower lobe are unchanged. Mild bilateral bronchiectasis are unchanged. A 3 mm nodule in the left upper lobe is unchanged from 2019 but decreased in size from 2016 (previously 5 mm) (image 123, series 5). A few other scattered areas of nodularity are unchanged from 2016. For example, a 4 mm nodule in the right apex is unchanged (image 44, series 5). A 6 mm nodular opacity in the right upper lobe is unchanged (image 82, series 5). A 1.4 cm nodular opacity in the right lower lobe is unchanged (image 146, series 5). A 1.0 cm nodular opacity in the left lower lobe adjacent to the left major fissure is unchanged (image 20, series 5). There are no new nodules. No pleural effusion. Chest wall and axillae: Breast tissue symmetric. No axillary lymphadenopathy. Upper abdomen: Cholecystectomy clips are noted. Bones: No acute osseous abnormality. IMPRESSION: 1. Overall unchanged appearance of the lungs with scattered reticular and nodular opacities and bronchiectasis, predominantly on the right, likely reflecting scarring. This has been stable since 2016. No new abnormality. 2. Unchanged enlarged thyroid gland with left thyroid nodule measuring at least 2.4 cm. Electronically signed by: Margareth Zuleta MD (03/23/2020 10:14 AM) [id number]
== END | disposition home or self-care (01) ==
LOC: CT 09:03
PROVIDERS: ATTEND Internal Medicine Pulmonary Disease
DX: E04.1 Nontoxic single thyroid nodule (principal); R91.8 Other nonspecific abnormal finding of lung field; I25.10 Atherosclerotic heart disease of native coronary artery without angina pectoris; I70.0 Atherosclerosis of aorta; J47.9 Bronchiectasis, uncomplicated; Z90.49 Acquired absence of other specified parts of digestive tract
CPT/HCPCS: 71250

== ENCOUNTER 2021-03-03 07:51 | Emergency (ER) | payer MEDICARE, OTHER ==
[~2021-03-03] VITALS: Ht 157.5 cm; Wt 78.5 kg
--- NOTE | 2021-03-03 08:21 | PHYS DOC ---
Past History Past Medical History: COPD Additional Past Medical Histor: sarcoidosis of lung, back and neck problems Past Surgical History: No Surgical History Smoking: Non-smoker Alcohol Use: None Drug Use: None Adult General Chief Complaint Chief Complaint: UPPER EXTREMITY PAIN HPI HPI Patient is a 65-year-old female presenting for left upper extremity pain. Reports it is focal to left shoulder without any known inciting event, trauma, ingestion or other concerning exposure. Nothing known makes better, reports range of motion in all planes make worse. It is dull in nature and often radiates down to her left upper extremity associated with numbness and tingling at times. Has a history of sarcoid, has no known cardiovascular issues, does admit history of high cholesterol for which she is on a statin. No prior provocative cardiac testing performed. No significant family history of early cardiac disease. She does not smoke drink or do any drugs. She has not had any neck imaging and no obvious neck trauma in her past. No fever, change in vision, ripping or tearing chest sensation, chest pain, shortness of breath, abdominal pain or other concerning findings Review of Systems Review of Systems Fourteen body systems of review of systems have been reviewed. See HPI for pertinent positives and negative responses, other foley all other systems are negative, non-pertinent or non-contributory Allergies Allergies Allergies Coded Allergies Type Severity Reaction Last Updated Verified Penicillins Allergy Intermediate rash (HAD A TWO YEAR) 03/03/21 Yes Sulfa (Sulfonamide Antibiotics) Allergy Intermediate HIVES 03/03/21 Yes simvastatin Allergy Intermediate 03/03/21 Yes erythromycin base Adverse Reaction Intermediate 03/03/21 Yes Physical Exam Physical Exam Constitutional: Well developed, well nourished, no acute distress, non-toxic appearance. HENT: Normocephalic, atraumatic, bilateral external ears normal, oropharynx moist, no oral exudates, nose normal. Eyes: PERRLA, EOMI, conjunctiva normal, no discharge. Neck: Normal range of motion, no tenderness, supple, no stridor. There is tenderness over left trapezius muscle from neck to top of left shoulder reproduc ing similar symptoms patient is presenting with Cardiovascular: Heart rate regular, sinus rhythm, no murmurs rubs or gallops Lungs & Thorax: Bilateral breath sounds clear to auscultation Abdomen: Bowel sounds normal, soft, no tenderness, no masses, no pulsatile masses. Nonsurgical abdomen, no peritoneal signs Skin: Warm, dry, no erythema, no rash. Back: No midline tenderness, no CVA tenderness. Extremities: No tenderness, no cyanosis, no clubbing, ROM intact, no edema. Neurologic: Alert and oriented X 3, grossly normal motor & sensory function, no focal deficits noted. Psychologic: Affect normal, judgement normal, mood normal. Current Patient Data Vital Signs Vital Signs Date Time Temp Pulse Resp B/P (MAP) Pulse Ox O2 Delivery O2 Flow Rate FiO2 03/03/21 08:15 98.2 85 18 163/77 95 Room Air Vital Signs Date Time Temp Pulse Resp B/P (MAP) Pulse Ox O2 Delivery O2 Flow Rate FiO2 03/03/21 08:15 98.2 85 18 163/77 95 Room Air Lab Results Laboratory Tests Test 03/03/21 08:50 White Blood Count 5.1 x10^3/uL Red Blood Count 4.61 x10^6/uL Hemoglobin 13.4 g/dL Hematocrit 40.8 % Mean Corpuscular Volume 88 fL Mean Corpuscular Hemoglobin 29 pg Mean Corpuscular Hemoglobin Concent 33 g/dL Red Cell Distribution Width 14.5 % Platelet Count 199 x10^3/uL Neutrophils (%) (Auto) 47 % Lymphocytes (%) (Auto) 40 % Monocytes (%) (Auto) 9 % Eosinophils (%) (Auto) 4 % Basophils (%) (Auto) 1 % Neutrophils # (Auto) 2.4 x10^3uL Lymphocytes # (Auto) 2.1 x10^3/uL Monocytes # (Auto) 0.4 x10^3/uL Eosinophils # (Auto) 0.2 x10^3/uL Basophils # (Auto) 0.0 x10^3/uL Sodium Level 145 mmol/L Potassium Level 4.1 mmol/L Chloride Level 111 mmol/L Carbon Dioxide Level 29 mmol/L Anion Gap 5 Blood Urea Nitrogen 10 mg/dL Creatinine 0.8 mg/dL Estimated GFR (Cockcroft-Gault) 87.7 BUN/Creatinine Ratio 13 Glucose Level 113 mg/dL Calcium Level 8.5 mg/dL Total Bilirubin 0.6 mg/dL Aspartate Amino Transf (AST/SGOT) 9 U/L Alanine Aminotransferase (ALT/SGPT) 26 U/L Alkaline Phosphatase 116 U/L Troponin I Quantitative < 0.017 ng/mL Total Protein 6.9 g/dL Albumin 3.4 g/dL Albumin/Globulin Ratio 1.0 EKG EKG EKG ordered and interpreted by myself at 0820 hrs. is sinus rhythm at 86 bpm, unremarkable intervals, no axis deviation, no acute ischemic findings, no STEMI Radiology/Procedures Radiology/Procedures EXAM: Left shoulder, 3 views. HISTORY: Pain. COMPARISON: None. FINDINGS: 3 views of the left shoulder obtained. There is no fracture, dislocation or subluxation. IMPRESSION: No acute osseous finding. Electronically signed by: Marlene León MD (03/03/2021 8:52 AM) [id number] //////////////////////////////////// EXAM: Chest, single view. HISTORY: Pain. COMPARISON: None. FINDINGS: A frontal view of the chest is obtained. There is no infiltrate, pleural effusion or pneumothorax. The heart is normal in size. IMPRESSION: No acute pulmonary finding. Electronically signed by: Marlene León MD (03/03/2021 8:52 AM) [id number] Heart Score C/O Chest Pain: No HEART Score for Chest Pain: HEART Score for Chest Pain Response (Comments) Value History Moderately Suspicious 1 ECG Normal 0 Age >45 - < 65 1 Risk Factors 1 or 2 Risk Factors 1 Troponin < Normal Limit 0 Total 3 Risk Factors: Risk Factors: DM, Current or recent (<one month) smoker, HTN, HLP, family history of CAD, obesity. Risk Scores: Risk Factors: DM, Current or recent (<one month) smoker, HTN, HLP, family history of CAD, obesity. Course & Med Decision Making Course & Med Decision Making ABCs unremarkable. I disclosed entirety of ER findings and discussed most likely diagnosis of left upper extremity pain. She will need further work-up to determine if this is cervical versus musculoskeletal in etiology. Other diagnoses were discussed with patient such as ACS, stroke, blood clot, pneumonia and other life-threatening causes of chest and upper extremity pain but all deemed less likely causes of patient's presentation. Plan of care discussed at length with need for close outpatient follow-up to review today's ER visit stressed. Strict return precautions were also discussed at length with good understanding by patient. Patient voiced understanding and agreement with the plan. Patient knows to come back for repeat evaluation if concerning signs or symptoms present prior to outpatient follow-up. Hemodynamically stable, ambulatory and well-appearing at time of disposition. Sofia Disclaimer Sofia Disclaimer This electronic medical record was generated, in whole or in part, using a voice recognition dictation system. Departure Departure: Impression: Primary Impression: Left arm pain Disposition: HOME / SELF CARE / HOMELESS Condition: STABLE Referrals: LIMA RIVERA (PCP) Additional Instructions: You were seen for left arm pain. Your pain is most likely due to a muscle strain or potentially related to cervical issues and should improve with Celebrex and/or Tylenol, stretching, and activity. You need to follow-up with your primary care doctor for further outpatient follow-up regarding this issue. Other testing modalities such as cervical spine imaging versus other tests might be indicated. You should return to the ED if you develop worsening pain, fever, numbness, tingling, weakness, or any other new or concerning symptoms. MAE FRANK DO Mar 03, 2021 08:21
--- NOTE | 2021-03-03 08:54 | RAD ---
EXAM: Chest, single view. HISTORY: Pain. COMPARISON: None. FINDINGS: A frontal view of the chest is obtained. There is no infiltrate, pleural effusion or pneumo thorax. The heart is normal in size. IMPRESSION: No acute pulmonary finding. Electronically signed by: Marlene León MD (03/03/2021 8:52 AM) [id number]
--- NOTE | 2021-03-03 08:54 | RAD ---
EXAM: Left shoulder, 3 views. HISTORY: Pain. COMPARISON: None. FINDINGS: 3 views of the left shoulder obtained. There is no fracture, dislocation or subluxation. IMPRESSION: No acute osseous finding. Electronically signed by: Marlene León MD (03/03/2021 8:52 AM) [id number]
[2021-03-03 09:06] LABS: BASO % 1 % (0-3); EOS # 0.2 x10^3/uL (0.0-0.7); EOS % 4 % (0-3); HEMATOCRIT 40.8 % (36.0-47.0); HEMOGLOBIN 13.4 g/dL (12.0-15.5); LYMPH # 2.1 x10^3/uL (1.0-4.8); LYMPH % 40 % (24-48); MEAN CORPUSCULAR HEMOGLOBIN 29 pg (25-35); MEAN CORPUSCULAR HGB CONC 33 g/dL (31-37); MEAN CORPUSCULAR VOLUME 88 fL (79-100); MONO # 0.4 x10^3/uL (0.0-1.1); MONO % 9 % (0-9); NEUT # 2.4 x10^3uL (1.8-7.7); NEUT % 47 % (31-73); PLATELET COUNT 199 x10^3/uL (140-400); RED BLOOD COUNT 4.61 x10^6/uL (3.50-5.40); RED CELL DISTRIBUTION WIDTH 14.5 % (11.5-14.5); WHITE BLOOD COUNT 5.1 x10^3/uL (4.0-11.0)
[2021-03-03 09:15] LABS: CALCIUM 8.5 mg/dL (8.5-10.1); CREATININE 0.8 mg/dL (0.6-1.0); GFR 87.7; POTASSIUM 4.1 mmol/L (3.5-5.1)
[2021-03-03 09:22] LABS: ALBUMIN 3.4 g/dL (3.4-5.0); TOTAL BILIRUBIN 0.6 mg/dL (0.2-1.0); TOTAL PROTEIN 6.9 g/dL (6.4-8.2)
[2021-03-03] MEDS ORDERED: KETOROLAC 60 MG/2 ML VIAL. IM ONE (09:45)
[2021-03-03] MEDS ORDERED: KETOROLAC 15 MG/ML VIAL. IVP ONE (09:45)
[2021-03-03 10:04] VITALS: BP 145/74
--- NOTE | 2021-03-03 12:07 | EKG ---
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
== END 2021-03-03 10:05 | disposition home or self-care (01) ==
LOC: ER 07:51
DX: M79.602 Pain in left arm (principal); M25.512 Pain in left shoulder; J44.9 Chronic obstructive pulmonary disease, unspecified; Z88.0 Allergy status to penicillin; Z88.2 Allergy status to sulfonamides; Z88.1 Allergy status to other antibiotic agents
CPT/HCPCS: 36415; 71045; 73030; 80053; 84484; 85025; 93005; 96372; 99285; J1885

== ENCOUNTER 2021-03-25 15:19 | Emergency (ER) | payer MEDICARE, OTHER ==
[~2021-03-25] VITALS: Ht 157.5 cm; Wt 78.5 kg
[2021-03-25 15:44] VITALS: BP 132/73
[2021-03-25] MEDS ORDERED: ORPHENADRINE CITRATE 60 MG/2 ML VIAL. IM ONE (15:45)
[2021-03-25] MEDS ORDERED: KETOROLAC 60 MG/2 ML VIAL. IM ONE (15:45)
--- NOTE | 2021-03-25 15:48 | PHYS DOC ---
Past History Past Medical History: COPD Additional Past Medical Histor: sarcoidosis of lung, back and neck problems, borderline DM (MACY ATKINSON APRN) Past Surgical History: Cholecystectomy (MACY ATKINSON APRN) Smoking: Non-smoker Alcohol Use: None Drug Use: None (MACY ATKINSON APRN) General Adult EDM: Chief Complaint: UPPER EXTREMITY PAIN HPI: HPI: Patient is a 65-year-old female being seen in the ER for left neck pain that radiates down her arm. Patient reports she was diagnosed with brachial plexus. She had a negative x-ray in this ER on March 03. She reports that she has an MRI scheduled as well as scheduling for PT. Patient has been taking Tylenol, [place] and applying lidocaine patches without relief in her pain. Patient denies any decreased sensation to her extremity. (MACY ATKINSON APRN) Review of Systems: Review of Systems: 14 body systems of the review of systems have been reviewed. See HPI for pertinent positive and negative responses, otherwise all other systems are negative, nonpertinent or noncontributory (MACY ATKINSON APRN) Allergies: Allergies: Allergies Coded Allergies Type Severity Reaction Last Updated Verified Penicillins Allergy Intermediate rash (HAD A TWO YEAR) 03/03/21 Yes Sulfa (Sulfonamide Antibiotics) Allergy Intermediate HIVES 03/03/21 Yes simvastatin Allergy Intermediate 03/03/21 Yes erythromycin base Adverse Reaction Intermediate 03/03/21 Yes (MACY ATKINSON APRN) Physical Exam: PE: Constitutional: Well developed, well nourished, no acute distress, non-toxic appearance. [] HENT: Normocephalic, atraumatic, bilateral external ears normal, oropharynx moist, no oral exudates, nose normal. [] Eyes: PERRLA, EOMI, conjunctiva normal, no discharge. [] Neck: Normal range of motion, left-sided paraspinal tenderness with palpation, no bony spinal tenderness, supple, no stridor. [] Cardiovascular: Normal peripheral perfusion Lungs & Thorax: Normal work of breathing, no tachypnea Abdomen: Bowel sounds normal, soft, no tenderness, no masses, no pulsatile masses. [] Skin: Warm, dry, no erythema, no rash. [] Back: No bony spinal tenderness, normal range of motion Extremities: No tenderness, no cyanosis, no clubbing, ROM intact, no edema. [] Neurologic: Alert and oriented X 3, normal motor function, normal sensory function, no focal deficits noted. [] Psychologic: Affect normal, judgement normal, mood normal. [] (MACY ATKINSON APRN) EKG: EKG: [] (MACY ATKINSON APRN) Radiology/Procedures: Radiology/Procedures: PROCEDURE: CT NECK CHEST WO CONTRAST STUDY: 1. CT neck without contrast 2. CT chest without contrast INDICATION: Neck pain. Shortness of breath. COMPARISON: CT chest 03/23/2020 TECHNIQUE: CT imaging of the neck and chest performed without the use of intravenous contrast. Obtainment of coronal and sagittal reformats. One or more of the following individualized dose reduction techniques were utilized for this examination: 1. Automated exposure control 2. Adjustment of the mA and/or kV according to patient size 3. Use of iterative reconstruction technique. FINDINGS: NECK: Within normal limits tonsillar pillars. No discrete mucosal mass along the pharynx. Within normal limits thickness of the epiglottis. Enlargement of the thyroid with the left lobe larger than the right. Redemonstration of a hypoattenuating nodule centered within the left thyroid lobe which is similar to minimally larger from the 03/23/2020 comparison me asuring approximately 3.3 cm AP by 1.6 cm transverse by 3.6 cm craniocaudal. Symmetric size and density of the submandibular and parotid glands. Cervical chain lymph nodes do not meet pathologic criteria based on size. No prevertebral or dorsal paraspinous edema/fluid collection. Left maxillary sinus mucosal thickening. Normally aerated mastoid air cells. Several missing teeth. No large periapical lucency. Multilevel spondylosis with disc osteophyte complex formation most notable at C3-C4, C5-C6 and C6-C7. Mild to moderate facet arthrosis at several levels in addition to uncovertebral joint hypertrophy. Osseous neural foraminal narrowing greatest on the left at C3-C4, right more so than left at C5-C6 and similar bilaterally at C6-C7. No evidence for severe central canal narrowing. CHEST: Redemonstration of multifocal pleuroparenchymal scarring. No newly seen or significantly enlarging pulmonary nodule. No pleural effusion or pneumothorax. No central airway opacification. Airway diameter is no different with mild bronchiectasis. Scattered calcific atherosclerosis with coronary artery involvement. Nonaneurysmal aorta. Main pulmonary artery caliber is within normal limits. No mediastinal or hilar adenopathy. No hiatal hernia or pericardial effusion. Similarly sized axillary lymph nodes. Prominent left thyroid lobe nodule as described above. Surgically absent gallbladder. No acute or aggressive osseous process. No advanced thoracic spondylosis. IMPRESSION: NECK: 1. No acute osseous or soft tissue abnormality identified throughout the neck. Patent airway. 2. Similar size of a prominent left thyroid lobe nodule measuring up to around 3.6 cm in maximum dimension. No cervical chain adenopathy. 3. Multilevel cervical spondylosis without evidence for severe narrowing of the central canal. Neural foraminal stenosis at multiple levels primarily on the left at C3-C4 and bilaterally at C5-C6 and C6-C7. CHEST: 1. No acute abnormality. Unchanged pleuroparenchymal scarring and mild bronchiectasis. 2. Chronic observations to include calcific coronary artery disease. Electronically signed by: MASON MALDONADO MD (03/25/2021 4:44 PM) [facility] DICTATED AND SIGNED BY: MASON MALDONADO MD DATE: 03/25/211628 CC: ANGELI OROZCO M.D.; MACY ATKINSON APRN; LIMA RIVERA JOB SUPERINTENDENT-BC ~MTH0 0 [] (MACY ATKINSON APRN) Heart Score: C/O Chest Pain: No Risk Factors: Risk Factors: DM, Current or recent (<one month) smoker, HTN, HLP, family history of CAD, obesity. Risk Scores: Score 0 - 3: 2.5% MACE over next 6 weeks - Discharge Home Score 4 - 6: 20.3% MACE over next 6 weeks - Admit for Clinical Observation Score 7 - 10: 72.7% MACE over next 6 weeks - Early Invasive Strategies (MACY ATKINSON APRN) Course & Med Decision Making: Course & Med Decision Making Pertinent Labs and Imaging studies reviewed. (See chart for details) [] Patient is a 65-year-old female being seen in the ER for left-sided neck pain that radiates down into her arm. Patient diagnosed with brachial plexus. CT performed of patient's neck and it showed to level cervical spondylosis without severe narrowing of the central canal CT scan of the chest showed no acute findings.. Patient has a outpatient CT scan of chest for Saturday scheduled, CT of chest added on to today's visit. Patient treated with anti-inflammatory and muscle relaxant. Patient is requesting to be discharged. Patient will be disc harged home with gabapentin and steroid medication. Patient advised to follow- up with her primary care provider and continue follow-up for MRI and physical therapy. I discussed with patient all findings and diagnostic testing as well as the need to follow-up with PCP for further evaluation and treatment or return to the ER if any new or worsening symptoms. Strict return precautions were also discussed at length. Patient voiced understanding and agreement with the plan. Patient is hemodynamically stable at the time of disposition. (MACY ATKINSON APRN) Course & Med Decision Making I was the Attending physician on the above date of service of this patient. This patient was evaluated, examined, treated, and dispositioned from the emergency department by the mid-level practitioner. Although I was working at the time , no assistance was requested. Electronically signed, Mae Frank DO (MAE FRANK DO) Sofia Disclaimer: Sofia Disclaimer: This electronic medical record was generated, in whole or in part, using a voice recognition dictation system. (MACY ATKINSON APRN) Departure Departure: Impression: Primary Impression: Cervical radiculopathy Disposition: HOME / SELF CARE / HOMELESS Condition: GOOD Referrals: LIMA RIVERA- (PCP) Patient Instructions: Cervical Radiculopathy Additional Instructions: You were seen in the ER for left-sided neck pain that radiated into your arm. This is consistent with cervical radiculopathy. A CT scan was performed of your neck and it showed some chronic changes. CT scan of your chest showed no acute findings. Please follow-up with your primary care provider on Saturday. Schedule your MRI and your physical therapy. You are being discharged home with steroids and nerve medication. Please take these as directed. Gabapentin can be sedating, please use caution with this medication. Do not take when you need to be alert. Do not take this medication with your [place]. If you develop worsening of your pain, headache, intractable nausea or vomiting, high fevers refractory to treatment, chest pain, shortness of breath or any new or worsening concerns please return to the ER for EMERGENCY DEPARTMENT GENERAL DISCHARGE INSTRUCTIONS Thank you for coming to [facility] (ED) today and trusting us with you care. We trust that you had a positivie experience in our Emergency Department. If you wish to speak to the department management, you may call the director at [phone]. YOUR FOLLOW UP INSTRUCTIONS ARE FOLLOWS: 1. Do you have a private Doctor? If you do not have a private doctor, please ask for a resource list of physicians or clinics that may be able to assist you with follow up care. 2. The Emergency Physician has interpreted your x-rays. The X-Ray specialist will also review them. If there is a change in the findings, you will be notified in 48 hours when at all possible. 3. A lab test or culture has been done, your results will be reviewed and you will be notified if you need a change in treatment. ADDITIONAL INSTRUCTIONS AND INFORMATION: 1. Your care today has been supervised by a physician who is specially trained in emergency care. Many problems require more than one evaluation for a complete diagnosis and treatment. We recommend that you schedule your follow up appointment as recommended to ensure complete treatment of you illness or injury. If you are unable to obtain follow up care and continue to have a problem, or if your condition worsens, we recommend that you return to the ED. 2. We are not able to safely determine your condition over the phone nor are we able to give sound medical advice over the phone. For these safety reasons, if you call for medical advice we will ask you to come to the ED for further evaluation. 3. If you have any questions regarding these discharge instructions please call the ED at [phone]. SAFETY INFORMATION: In the interest of safety, wellness, and injury prevention; we encourage you to wear your sealbelt, if you smoke; quite smoking, and we encourage family to use a protective helmet for bicycling and other sporting events that present an increased risk for head injury. IF YOUR SYMPTOMS WORSEN OR NEW SYMPTOMS DEVELOP, OR YOU HAVE CONCERNS ABOUT YOUR CONDITION; OR IF YOUR CONDITION WORSENS WHILE YOU ARE WAITING FOR YOUR FOLLOW UP APPOINTMENT; EITHER CONTACT YOUR PRIMARY CARE DOCTOR, THE PHYSICIAN WHOSE NAME AND NUMBER YOU WERE GIVEN, OR RETURN TO THE ED IMMEDIATELY. Scripts Gabapentin (GABAPENTIN ) 100 Mg Capsule 100 MG PO TID for NEUROGENIC PAIN for 5 Days, #15 CAP 0 Refills Prov: MACY ATKINSON APRN 03/25/21 Prednisone (PREDNISONE) 10 Mg Tablet 10 MG PO UD for PREDNISONE TAPER, #39 TAB 0 Refills Take 3 tablets by mouth twice a day for 3 days, then take 2 tablets by mouth twice a day for 3 days, then take 1 tablet by mouth twice a day for 3 days, then take 1 tablet by mouth daily x 3 days, then stop. Prov: MACY ATKINSON APRN 03/25/21 MACY ATKINSON APRN Mar 25, 2021 15:48 MAE FRANK DO Mar 27, 2021 06:37
--- NOTE | 2021-03-25 16:47 | RAD ---
STUDY: 1. CT neck without contrast 2. CT chest without contrast INDICATION: Neck pain. Shortness of breath. COMPARISON: CT chest 03/23/2020 TECHNIQUE: CT imaging of the neck and chest performed without the use of intravenous contrast. Obtain ment of coronal and sagittal reformats. One or more of the following individualized dose reduction techniques were utilized for this examinat ion: 1. Automated exposure control 2. Adjustment of the mA and/or kV according to patient size 3. Use of iterative reconstruction technique. FINDINGS: NECK: Within normal limits tonsillar pillars. No discrete mucosal mass along the pharynx. Within normal camp its thickness of the epiglottis. Enlargement of the thyroid with the left lobe larger than the right. Redemonstration of a hypoattenua ting nodule centered within the left thyroid lobe which is similar to minimally larger from the 2019 comparison measuring approximately 3.3 cm AP by 1.6 cm transverse by 3.6 cm craniocaudal. Symmet sandra size and density of the submandibular and parotid glands. Cervical chain lymph nodes do not meet pathologic criteria based on size. No prevertebral or dorsal p araspinous edema/fluid collection. Left maxillary sinus mucosal thickening. Normally aerated mastoid air cells. Several missing teeth. N o large periapical lucency. Multilevel spondylosis with disc osteophyte complex formation most notabl e at C3-C4, C5-C6 and C6-C7. Mild to moderate facet arthrosis at several levels in addition to uncove rtebral joint hypertrophy. Osseous neural foraminal narrowing greatest on the left at C3-C4, right mo re so than left at C5-C6 and similar bilaterally at C6-C7. No evidence for severe central canal narro wing. CHEST: Redemonstration of multifocal pleuroparenchymal scarring. No newly seen or significantly enlarging pu lmonary nodule. No pleural effusion or pneumothorax. No central airway opacification. Airway diameter is no different with mild bronchiectasis. Scattered calcific atherosclerosis with coronary artery involvement. Nonaneurysmal aorta. Main pulmon ida artery caliber is within normal limits. No mediastinal or hilar adenopathy. No hiatal hernia or pericardial effusion. Similarly sized axillary lymph nodes. Prominent left thyroid lobe nodule as described above. Surgically absent gallbladder. No acute or aggressive osseous process. No advanced thoracic spondylos is. IMPRESSION: NECK: 1. No acute osseous or soft tissue abnormality identified throughout the neck. Patent airway. 2. Similar size of a prominent left thyroid lobe nodule measuring up to around 3.6 cm in maximum dime nsion. No cervical chain adenopathy. 3. Multilevel cervical spondylosis without evidence for severe narrowing of the central canal. Neural foraminal stenosis at multiple levels primarily on the left at C3-C4 and bilaterally at C5-C6 and C6 -C7. CHEST: 1. No acute abnormality. Unchanged pleuroparenchymal scarring and mild bronchiectasis. 2. Chronic observations to include calcific coronary artery disease. Electronically signed by: MASON MALDONADO MD (03/25/2021 4:44 PM) [facility]
[2021-03-25] MEDS ORDERED: GABA-585 PO (17:05)
[2021-03-25] MEDS ORDERED: PRED-220 PO (17:05)
== END 2021-03-25 17:20 | disposition home or self-care (01) ==
LOC: ER 15:19
DX: M54.12 Radiculopathy, cervical region (principal); J44.9 Chronic obstructive pulmonary disease, unspecified; Z90.49 Acquired absence of other specified parts of digestive tract; Z88.0 Allergy status to penicillin; Z88.2 Allergy status to sulfonamides; Z88.8 Allergy status to other drugs, medicaments and biological substances; Z88.1 Allergy status to other antibiotic agents
CPT/HCPCS: 70490; 71250; 96372; 99285; J1885; J2360

== ENCOUNTER → 2021-08-16 | Outpatient (CLI) | payer MEDICARE, OTHER ==
[~2021-08-16] MED LIST changes: -CYCL-331 PO; +CYCL10TA19 PO; +GABA-585 PO
--- NOTE | 2021-08-23 13:29 | RAD ---
BILATERAL DIGITAL SCREENING 2-D AND 3-D MAMMOGRAM INDICATION: Routine screening. COMPARISON: May 16, 2020, October 17, 2018, September 27, 2016 and January 19, 2015 Interpretation was made using CAD. FINDINGS: Breast Density: There are scattered areas of fibroglandular density. RIGHT BREAST: No suspicious masses, calcifications or areas of architectural distortion are seen. LEFT BREAST: No suspicious masses, calcifications or areas of architectural distortion are seen. IMPRESSION: 1. No imaging evidence of malignancy. ASSESSMENT: BI-RADS 1. Negative. RECOMMENDATION: Routine annual screening mammogram. The facility will notify the patient of the results via mail. Patient information will be entered int o the mammography reminder system with a target recall date for the next mammogram. A reminder letter will be generated by the facility. Electronically signed by: Annika Brower MD (08/23/2021 1:27 PM) [id number]
== END ==
LOC: MAMMO 10:08
PROVIDERS: ATTEND Nurse Practitioner Family
DX: Z12.31 Encounter for screening mammogram for malignant neoplasm of breast (principal)
CPT/HCPCS: 77063; 77067